=== PATIENT | female | born 1950 | race Caucasian/White ===

== ENCOUNTER → 2017-01-15 | Outpatient (CLI) | payer MEDICARE, OTHER ==
--- NOTE | 2017-01-15 14:10 | MR ---
EXAMINATION TYPE: MR lumbar spine wo con DATE OF EXAM: 01/15/2017 12:47 PM COMPARISON: August 05, 2010 HISTORY: si radiculopathy, left foot numbness Multiplanar, MultiSpin echo imaging of the lumbar spine was performed. L1-L2: There is mild decreased signal and loss of height compatible with a mild disc desiccation. No herniation, protrusion or disc bulging. No canal stenosis is present. Foramina are patent bilateral ly. L2-L3: There is mild decreased signal and loss of height compatible with a mild disc desiccation. No herniation, protrusion or disc bulging. No canal stenosis is present. Foramina are patent bilateral ly. L3-L4: There is mild decreased signal and loss of height compatible with a mild disc desiccation. No herniation, protrusion or disc bulging. No canal stenosis is present. Foramina are patent bilateral ly. L4-L5: There is mild decreased signal and loss of height compatible with a mild disc desiccation. No herniation, protrusion or disc bulging. No canal stenosis is present. Foramina are patent bilateral ly. L5-S1: Severe disc desiccation. Again noted is a grade 1 anterolisthesis L5 on S1 measuring 7.3 mm wi th mild interval progression. There is severe facet joint arthropathy. Mild posterior disc bulging is again noted with effacement of the ventral thecal sac. No evidence for lateral recess stenosis or ce ntral stenosis. No alison disc herniation. Bilateral foraminal encroachment. Lumbar segments are intact. No paraspinal masses are identified. Conus medullaris has a normal appe arance. IMPRESSION: 1. Multilevel degenerative disc disease greatest at L5-S1 where there is a mildly progressive grade 1 anterolisthesis.
== END | disposition home or self-care (01) ==
LOC: RADMRIMAIN 11:59
PROVIDERS: ATTEND Psychiatry & Neurology Neurology
DX: M43.17 Spondylolisthesis, lumbosacral region (principal); M51.17 Intervertebral disc disorders with radiculopathy, lumbosacral region
CPT/HCPCS: 72148

== ENCOUNTER 2018-08-26 09:10 | Day surgery (SDC) | payer MEDICARE, OTHER ==
[2018-08-21 10:16] VITALS: BMI 33.6
[~2018-08-26 09:10] MED LIST: ALPRAZolam 0.25 MG TAB PO PRN; ALPRAZolam 0.5 MG TAB PO PRN; ASPIRIN 325 MG TAB PO STA; ATORVASTATIN 80 MG TAB PO STA; NITROGLYCERIN SL TABS 0.4 MG TAB SUBLINGUAL PRN; SODIUM CHLORIDE 0.9% 1,000 ML in EMPTY BAG 1 BAG IV ONE
[2018-08-26] MEDS ORDERED: LIDOCAINE 1% INJ 10MG/ML (20 ML MDV) ONE (10:06)
[2018-08-26] MEDS ORDERED: VERAPAMIL 2.5 MG/ML 2 ML AMP ONE (10:06)
[2018-08-26] MEDS ORDERED: HEPARIN SODIUM 1,000 UN/ML (10ML VL) ONE (10:06)
[2018-08-26] MEDS ORDERED: MIDAZOLAM (PF) 2 MG/2 ML VIAL IVP ONE (10:29)
[2018-08-26] MEDS ORDERED: LIDOCAINE 1% INJ 10MG/ML (20 ML MDV) SQ ONE (10:32)
[2018-08-26] MEDS: VERAPAMIL SYRINGE (5 MG/10 ML) INTRAARTER ONE ×2 (10:33→10:59)
[2018-08-26] MEDS ORDERED: HEPARIN SODIUM 1,000 UN/ML (10ML VL) IV ONE (10:34)
[2018-08-26] MEDS ORDERED: TICAGRELOR 90 MG TAB ONE (10:44)
[2018-08-26] MEDS ORDERED: TICAGRELOR 90 MG TAB PO ONE (10:45)
[2018-08-26] MEDS ORDERED: NITROGLYCERIN 1000MCG/10ML SYRINGE INTRACORON ONE (10:57)
[2018-08-26] MEDS ORDERED: IOPAMIDOL-370 100ML BTL INJ ONE (10:58)
[2018-08-26] MEDS ORDERED: IOPAMIDOL-370 50ML BTL INJ ONE (10:59)
[2018-08-26] MEDS ORDERED: LIDOCAINE 5% PATCH TOPICAL PRN (11:13)
[2018-08-26] MEDS ORDERED: CYCLOBENZAPRINE 10 MG TAB PO PRN (11:13)
[2018-08-26] MEDS ORDERED: MAG HYDROX/AL HYDROX/SIMETH 30 ML CUP PO PRN (11:14)
[2018-08-26] MEDS ORDERED: ATROPINE SULFATE 0.1 MG/ML 10ML SYRINGE IV PRN (11:14)
[2018-08-26] MEDS ORDERED: RX INFO: IV CONTRAST WAS GIVEN 1 EACH MISC MISCELLANE PRN (11:14)
[2018-08-26] MEDS ORDERED: ZOLPIDEM 5 MG TAB PO PRN (11:14)
[2018-08-26] MEDS ORDERED: NITROGLYCERIN SL TABS 0.4 MG TAB SUBLINGUAL PRN (11:14)
[2018-08-26] MEDS ORDERED: SODIUM CHLORIDE 0.9% 1,000 ML IV SCH (11:15)
--- NOTE | 2018-08-26 13:08 | CC ---
CARDIAC CATHETERIZATION REPORT DATE OF SERVICE: 08/26/2018 PERFORMING PHYSICIAN: Dillon Vizcaino MD, Yacht Rigger. PROCEDURE PERFORMED: 1. Selective right and left coronary angiogram. 2. Left heart catheterization. 3. Successful stenting of the proximal left anterior descending artery using 3.5 x 12 mm Xience drug-eluting stent with an excellent angiographic results. INDICATION: This is a pleasant 68-year-old female patient who was experiencing chest discomfort concerning for angina. Because of that, heart catheterization was advised. APPROACH: Right radial artery. COMPLICATION: None. LEVEL OF SEDATION: Moderate with sedation length of 30 minutes. PROCEDURE DESCRIPTION: After obtaining an informed consent, the patient was brought to the cardiac laborer brooder farm. The right radial artery was cannulated using micropuncture technique, the micropuncture wire passed easily, then I placed a 6-Slovak sheath 11 cm in the right radial artery. I gave the patient after that 2 mg of verapamil IA and 10,000 units of heparin IV. I did selective right and left coronary angiogram using JR4 and JL3.5 catheters. The left heart catheterization was performed using the JR4 catheter which flipped into the LV then I did pullback across the aortic valve. After that. I did PCI of the LAD. Please see a separate paragraph for that. SELECTIVE CORONARY ANGIOGRAM: 1. The right coronary artery is a large caliber vessel. It is a dominant vessel. The RCA is heavily calcified. The proximal RCA has a lesion, appeared to be in the range of 70%. The mid RCA is hazy with mild disease only. The RCA distally appeared to have another lesion in the range of 60%. Then the RCA bifurcates into PDA and PLV branches, both appeared both appear to have mild to moderate diffuse disease. 2. The left main is angiographically normal. It bifurcates into left circumflex and left anterior descending artery. 3. The left circumflex is a moderate caliber vessel. It is a nondominant vessel and appeared to be angiographically normal. 4. The LAD, the proximal LAD between the bifurcation of the first and second diagonal branch has a lesion appeared to be in the range of 80%. The mid and distal LAD appeared to be angiographically normal. The first and second diagonal branches appeared to be normal. 5. HEMODYNAMICS, the left ventricular pressure was 10 mmHg without significant gradient across the aortic valve. 6. PCI of the LAD, anticoagulation was initiated using heparin with continuous ACT monitoring throughout the procedure. After that I gave the patient 180 mg of Brilinta. After that, I did engage the left main using JL3.5 guide. The run-through wire was used to wire the LAD. I did after that balloon angioplasty using 3.5 x 12 mm balloon before I deployed a 3.5 x 12 mm Xience drug-eluting stent where the stent was positioned under fluoroscopy guidance and deployed under its nominal pressure. The following angiogram showed good results and the procedure was completed without any complication. CONCLUSION: 1. Calcified right coronary system with disease involving the proximal right coronary artery appears to be in the range of 70%. 2. Severe disease involving the proximal left anterior descending artery. 3. Successful stenting of the proximal left anterior descending artery using 3.5 x 12 mm Xience LISA with good angiographic results. POSTPROCEDURE MANAGEMENT: 1. Medical treatment. 2. Follow up with the patient. MMODL / IJN: [id number] /
[2018-08-26] MEDS: ETODOLAC 200 MG CAPSULE PO SCH (19:57)
[2018-08-26] MEDS: TICAGRELOR 90 MG TAB PO SCH (19:57)
[2018-08-26] MEDS ORDERED: MONTELUKAST 10 MG TAB PO SCH (21:00)
[2018-08-27 07:42] LABS: Anion Gap 9 mmol/L; Blood Urea Nitrogen 16 mg/dL (7-17); Calcium 9.6 mg/dL (8.4-10.2); Carbon Dioxide 23 mmol/L (22-30); Chloride 109 mmol/L (98-107); Glucose 101 mg/dL (74-99); Sodium 141 mmol/L (137-145)
[2018-08-27 07:43] LABS: Potassium 4.6 mmol/L (3.5-5.1)
[2018-08-27] MEDS: TICAGRELOR 90 MG TAB PO SCH (07:53)
[2018-08-27] MEDS: ETODOLAC 200 MG CAPSULE PO SCH (07:53)
--- NOTE | 2018-08-27 08:02 | DS ---
DISCHARGE SUMMARY ADMISSION DATE: August 26, 2018 DISCHARGE DATE: August 27, 2018 BRIEF HISTORY: This is a pleasant 68-year-old female patient who was experiencing symptoms of chest discomfort and underwent heart catheterization which revealed severe disease involving the left anterior descending artery. She underwent successful stenting of the LAD with good angiographic results and without any complication from right radial approach. On follow up with her today, she is asymptomatic. She is going to be discharged home on dual antiplatelet therapy and I will follow up with her in a week in the office. MMODL / IJN: [id number] /
[2018-08-27 08:05] LABS: Basophils # (A) 0.1 k/uL (0-0.2); Basophils % (A) 1 %; Eosinophils # (A) 0.5 k/uL (0-0.7); Eosinophils % (A) 9 %; HCT 48.4 % (34.0-46.0); HGB 16.1 gm/dL (11.4-16.0); Lymphocytes # (A) 1.3 k/uL (1.0-4.8); Lymphocytes % (A) 26 %; MCH 32.2 pg (25.0-35.0); MCHC 33.3 g/dL (31.0-37.0); MCV 96.7 fL (80.0-100.0); Mean Platelet Volume 7.9; Monocytes # (A) 0.3 k/uL (0-1.0); Monocytes % (A) 7 %; Neutrophils # (A) 2.7 k/uL (1.3-7.7); Neutrophils % (A) 54 %; Platelet Count 192 k/uL (150-450); RBC 5.01 m/uL (3.80-5.40); RDW 14.6 % (11.5-15.5); WBC 5.1 k/uL (3.8-10.6)
[2018-08-27 08:07] VITALS: BP 167/85; PULSE 70; RESP 18; TEMP 98.3
[2018-08-27] MEDS ORDERED: ATORVASTATIN 40 MG TAB PO SCH (09:00)
[2018-08-27] MEDS ORDERED: ALLOPURINOL 300 MG TAB PO SCH (09:00)
[2018-08-27] MEDS ORDERED: [UNRECOGNIZED DRUG - OTHER] PO SCH (09:00)
[2018-08-27] MEDS ORDERED: GABAPENTIN 100 MG CAP PO SCH (09:00)
[2018-08-27] MEDS ORDERED: ASPIRIN 81 MG PO SCH (09:00)
[2018-08-27] MEDS ORDERED: amLODIPine 5 MG TAB PO SCH (09:00)
[2018-08-27] MEDS ORDERED: Ubidecarenone [Co Q-10] 100 MG PO SCH (09:00)
[2018-08-27] MEDS ORDERED: MULTIVITAMINS, THERA 1 EACH TAB PO SCH (09:00)
[2018-08-27] MEDS ORDERED: CHOLECALCIFEROL 1,000 UNIT TAB PO SCH (09:00)
[2018-08-27] MEDS ORDERED: ACETAMINOPHEN TAB 500 MG TAB PO SCH (09:00)
[2018-08-27] MEDS ORDERED: HYDROCHLOROTHIAZIDE 25 MG TAB PO SCH (09:00)
== END 2018-08-27 09:30 | disposition home or self-care (01) ==
LOC: CATHCVL 09:10 → 3SCARD 11:11 → CATHCVL 08-27 09:30
PROVIDERS: ATTEND Internal Medicine Interventional Cardiology
DX: I25.110 Atherosclerotic heart disease of native coronary artery with unstable angina pectoris (principal); I25.84 Coronary atherosclerosis due to calcified coronary lesion; I10 Essential (primary) hypertension; E78.5 Hyperlipidemia, unspecified; Z82.49 Family history of ischemic heart disease and other diseases of the circulatory system; I35.0 Nonrheumatic aortic (valve) stenosis; R01.1 Cardiac murmur, unspecified; Z79.1 Long term (current) use of non-steroidal anti-inflammatories (NSAID); Z79.82 Long term (current) use of aspirin; Z79.899 Other long term (current) drug therapy
CPT/HCPCS: 93458; 80048; 85025; C9600; C1887; C1725; C1769 ×2; C1874; C1894; J2001; J1644; Q9967 ×2; J2250

== ENCOUNTER 2018-09-29 06:19 | Day surgery (SDC) | payer MEDICARE, OTHER ==
[2018-09-23 12:29] VITALS: BMI 33.0
[~2018-09-29 06:19] MED LIST changes: -ALPRAZolam 0.5 MG TAB PO PRN; +ASPIRIN 325 MG TAB PO ONE; -ASPIRIN 325 MG TAB PO STA; -ATORVASTATIN 80 MG TAB PO STA; -NITROGLYCERIN SL TABS 0.4 MG TAB SUBLINGUAL PRN
[2018-09-29 07:25] LABS: Basophils # (A) 0.1 k/uL (0-0.2); Basophils % (A) 1 %; Eosinophils # (A) 0.4 k/uL (0-0.7); Eosinophils % (A) 8 %; HCT 41.3 % (34.0-46.0); HGB 13.5 gm/dL (11.4-16.0); Lymphocytes # (A) 1.3 k/uL (1.0-4.8); Lymphocytes % (A) 26 %; MCH 31.4 pg (25.0-35.0); MCHC 32.6 g/dL (31.0-37.0); MCV 96.3 fL (80.0-100.0); Mean Platelet Volume 7.5; Monocytes # (A) 0.4 k/uL (0-1.0); Monocytes % (A) 9 %; Neutrophils # (A) 2.7 k/uL (1.3-7.7); Neutrophils % (A) 53 %; Platelet Count 207 k/uL (150-450); RBC 4.29 m/uL (3.80-5.40)
[2018-09-29] MEDS ORDERED: ASPIRIN 81 MG PO ONE (07:32)
[2018-09-29 07:45] LABS: Anion Gap 5 mmol/L; Blood Urea Nitrogen 15 mg/dL (7-17); Calcium 9.2 mg/dL (8.4-10.2); Carbon Dioxide 29 mmol/L (22-30); Chloride 108 mmol/L (98-107); Glucose 117 mg/dL (74-99); Potassium 4.2 mmol/L (3.5-5.1); Sodium 142 mmol/L (137-145)
[2018-09-29] MEDS ORDERED: LIDOCAINE 1% INJ 10MG/ML (20 ML MDV) ONE (08:09)
[2018-09-29] MEDS ORDERED: MIDAZOLAM (PF) 2 MG/2 ML VIAL IV ONE (08:34)
[2018-09-29] MEDS ORDERED: BIVALIRUDIN BOLUS 250 MG/50 ML IV ONE (08:41)
[2018-09-29] MEDS ORDERED: BIVALIRUDIN 250 MG in SODIUM CHLORIDE 0.9% 50 ML IV ONE (08:42)
[2018-09-29] MEDS ORDERED: ENALAPRILAT 1.25 MG/ML 1 ML VIAL ONE (09:04)
[2018-09-29] MEDS ORDERED: hydrALAZINE HCL 20 MG/ML 1 ML VIAL ONE (09:04)
[2018-09-29] MEDS ORDERED: ENALAPRILAT 1.25 MG/ML 1 ML VIAL IV ONE (09:06)
[2018-09-29] MEDS ORDERED: hydrALAZINE HCL 20 MG/ML 1 ML VIAL IV ONE (09:09)
[2018-09-29] MEDS ORDERED: IOPAMIDOL-370 100ML BTL INJ ONE (09:09)
[2018-09-29] MEDS ORDERED: CYCLOBENZAPRINE 10 MG TAB PO PRN (09:12)
[2018-09-29] MEDS ORDERED: ZOLPIDEM 5 MG TAB PO PRN (09:14)
[2018-09-29] MEDS ORDERED: MAG HYDROX/AL HYDROX/SIMETH 30 ML CUP PO PRN (09:14)
[2018-09-29] MEDS ORDERED: RX INFO: IV CONTRAST WAS GIVEN 1 EACH MISC MISCELLANE PRN (09:14)
[2018-09-29] MEDS ORDERED: ATROPINE SULFATE 0.1 MG/ML 10ML SYRINGE IV PRN (09:14)
[2018-09-29] MEDS ORDERED: NITROGLYCERIN SL TABS 0.4 MG TAB SUBLINGUAL PRN (09:14)
[2018-09-29] MEDS ORDERED: SODIUM CHLORIDE 0.9% 1,000 ML IV SCH (09:15)
--- NOTE | 2018-09-29 09:45 | CC ---
CARDIAC CATHETERIZATION REPORT PERCUTANEOUS CORONARY INTERVENTION: DATE OF SERVICE: 09/29/2017 PERFORMING PHYSICIAN: Dillon Vizcaino MD, Neurological Surgery Teacher. PROCEDURE PERFORMED: 1. Successful stenting of the mid right coronary artery using 4.0 x 15 mm Xience LISA with good angiographic results. 2. Successful stenting of the proximal RCA using 5.0 x 18 mm multilink bare metal stent with an excellent angiographic results. INDICATION: This is a 68-year-old female patient who underwent a heart catheterization recently for chest discomfort and was found to have severe coronary artery disease involving the LAD and RCA where she underwent stenting of the RCA at that point, and she was brought today to undergo stenting of the LAD. At that point, she was brought today to undergo stenting of the RCA. APPROACH: Right common femoral artery. COMPLICATION: None. LEVEL OF SEDATION: Moderate with sedation length of 30 minutes. PROCEDURE DESCRIPTION: After obtaining an informed consent, the patient was brought to the cardiac mill labor supervisor. The right common femoral artery was cannulated using micropuncture technique, the micropuncture wire passed easily, then I placed a 6-Tajik sheath in the right common femoral artery. At that point, anticoagulation was initiated using Angiomax. Subsequently, I did engage the right coronary artery using JR4 guide. A run-through wire was used to wire the right coronary artery. After that, I did PTCA ballooning using 3.5 x 12 mm balloon before I deployed in the mid right coronary artery, I deployed 4.0 x 15 mm Xience drug- eluting stent, which was deployed under 18 atmospheres for 20 seconds and in the proximal right coronary artery, I did deploy 5.0 x 18 mm multilink bare metal stent where the second stent was positioned under fluoroscopy guidance with 2 mm overlap between the 2 stents and the second stent was deployed under 18 atmospheres for 20 seconds. After that, I took a 4.5 mm NC balloon and I post dilated the 2 stents. The final angiogram showed excellent angiographic results and the procedure was completed without any complication. POSTPROCEDURE MANAGEMENT: 1. Dual anti-platelet therapy. 2. Risk factors modifications. 3. Follow up with the patient. MMDORITAL / AIDENN: [id number] /
[2018-09-29] MEDS ORDERED: ACETAMINOPHEN TAB 500 MG TAB PO STA (12:45)
[2018-09-29] MEDS: ACETAMINOPHEN TAB 500 MG TAB PO SCH (12:49)
[2018-09-29] MEDS: CARVEDILOL 3.125 MG TAB PO SCH (17:20)
[2018-09-29] MEDS ORDERED: MONTELUKAST 10 MG TAB PO SCH (21:00)
[2018-09-29] MEDS: ETODOLAC 400 MG TAB PO SCH (22:12)
[2018-09-29] MEDS: TICAGRELOR 90 MG TAB PO SCH (22:12)
[2018-09-29] MEDS: AMOXIC-POT CLAV 875-125MG 1 EACH TAB PO SCH (22:13)
[2018-09-30] MEDS: CARVEDILOL 3.125 MG TAB PO SCH (07:10)
[2018-09-30 08:30] LABS: Basophils # (A) 0.1 k/uL (0-0.2); Basophils % (A) 1 %; Eosinophils # (A) 0.3 k/uL (0-0.7); Eosinophils % (A) 6 %; HCT 41.5 % (34.0-46.0); HGB 13.8 gm/dL (11.4-16.0); Lymphocytes # (A) 1.2 k/uL (1.0-4.8); Lymphocytes % (A) 21 %; MCH 32.1 pg (25.0-35.0); MCHC 33.1 g/dL (31.0-37.0); Mean Platelet Volume 7.9; Monocytes # (A) 0.4 k/uL (0-1.0); Monocytes % (A) 8 %; Neutrophils # (A) 3.4 k/uL (1.3-7.7); Neutrophils % (A) 62 %; Platelet Count 195 k/uL (150-450); RBC 4.28 m/uL (3.80-5.40); RDW 15.3 % (11.5-15.5); WBC 5.5 k/uL (3.8-10.6)
[2018-09-30 08:42] LABS: Anion Gap 9 mmol/L; Blood Urea Nitrogen 13 mg/dL (7-17); Calcium 9.4 mg/dL (8.4-10.2); Carbon Dioxide 24 mmol/L (22-30); Chloride 109 mmol/L (98-107); Glucose 120 mg/dL (74-99); Potassium 4.1 mmol/L (3.5-5.1); Sodium 142 mmol/L (137-145)
[2018-09-30] MEDS ORDERED: ALLOPURINOL 300 MG TAB PO SCH (09:00)
[2018-09-30] MEDS ORDERED: NON-FORMULARY DRUG (Ubidecarenone [Co Q-10] 100 MG) PO SCH (09:00)
[2018-09-30] MEDS ORDERED: amLODIPine 5 MG TAB PO SCH (09:00)
[2018-09-30] MEDS ORDERED: CHOLECALCIFEROL 1,000 UNIT TAB PO SCH (09:00)
[2018-09-30] MEDS ORDERED: MULTIVITAMINS, THERA 1 EACH TAB PO SCH (09:00)
[2018-09-30] MEDS ORDERED: NON-FORMULARY DRUG (Glucosam/Chon-Msm1/C/Mang/Bosw [Glucosamine-Chondroitin Tablet] 1 EACH PO SCH (09:00)
[2018-09-30] MEDS ORDERED: ASPIRIN 81 MG PO SCH (09:00)
[2018-09-30] MEDS ORDERED: LACTOBACILLUS ACIDOPH & BULGAR 1 EACH PACKET PO SCH (09:00)
[2018-09-30] MEDS ORDERED: HYDROCHLOROTHIAZIDE 25 MG TAB PO SCH (09:00)
[2018-09-30] MEDS ORDERED: ATORVASTATIN 40 MG TAB PO SCH (09:00)
[2018-09-30] MEDS: ETODOLAC 400 MG TAB PO SCH (09:25)
[2018-09-30] MEDS: GABAPENTIN 100 MG CAP PO SCH ×2 (09:25→09:26)
[2018-09-30] MEDS: ACETAMINOPHEN TAB 500 MG TAB PO SCH (09:25)
[2018-09-30] MEDS: AMOXIC-POT CLAV 875-125MG 1 EACH TAB PO SCH (09:25)
[2018-09-30] MEDS: TICAGRELOR 90 MG TAB PO SCH (09:26)
--- NOTE | 2018-09-30 09:43 | P.DS ---
Providers Attending physician: iDllon Vizcaino Consults: 09/29/18 09:14 Consult Physician Routine Consulting Provider: [facility] Consult Reason/Comments: Post Interventional patient Do you want consulting provider notified?: Already Contacted Placement Type Exists?: Yes Primary care physician: A[facility] Course: INTERVAL HISTORY: The patient is a 68-year-old female admitted to the hospital by Dr. Nair for elective PCI. She underwent successful stent placement to the mid and proximal RCA with 2 stents. Mid being Xience drug- eluting and the proximal being bare-metal. This was done via the right femoral approach. She is seen and examined up walking around the room in no acute distress. She denies chest pain, shortness of breath, dizziness, nausea, vomiting or palpitations. She also denies any pain, bleeding or swelling at the site of the procedure. Repeat EKG this morning reveals sinus mechanism with right bundle branch block. Laboratory data reviewed, WBC 5.5, hemoglobin 13.8, platelets 195, sodium 142, potassium 4.1, creatinine 0.45. Currently maintained on Brillinta 90 mg twice a day, amlodipine 5 mg daily, aspirin 81 mg daily, atorvastatin 40 mg daily, carvedilol 6.25 mg twice a day, hydrochlorothiazide 25 mg daily, Requip 0.5 mg at bedtime, Singulair 10 mg daily, Neurontin 100 mg daily, Lodine 400 mg twice a day, allopurinol 300 mg daily. PHYSICAL EXAMINATION: Blood pressure 132/67, heart rate D5, respirations 16, temp 97.8F. Patient is 95 % room air. HEART: S1, S2 normal. LUNGS: Clear to auscultation. NECK: Supple. ABDOMEN: Soft. EXTREMITIES: 2+ peripheral pulses. Right femoral access site clean, dry, intact with no evidence of bleeding, hematoma or swelling. Mild ecchymosis noted. ASSESSMENT Coronary artery disease status post successful angioplasty PLAN Hemodynamically stable. Discharge home on current regimen with no change in medications. This has been explained to the patient and her daughter in great detail and questions have been answered appropriately. I have advised her to NOT return to water aerobics until she follows up in the office for evaluation. Follow-up in the office with Dr. Vizcaino in one week. Nurse Practitioner note has been reviewed, I agree with a documented findings and plan of care. Patient was seen and examined. Patient Condition at Discharge: Stable Plan - Discharge Summary Discharge Rx Participant: Yes New Discharge Prescriptions: Continue Aspirin 81 mg PO DAILY Diclofenac Sodium [Voltaren] 75 mg PO BID Atorvastatin [Lipitor] 40 mg PO DAILY amLODIPine [Norvasc] 5 mg PO DAILY Gabapentin [Neurontin] 100 mg PO DAILY Allopurinol [Zyloprim] 300 mg PO DAILY Cyclobenzaprine [Flexeril] 10 mg PO DAILY PRN PRN Reason: Muscle Spasm Glucosam/Wilber-Msm1/C/Liborio/Bosw [Glucosamine-Chondroitin Tablet] 1 each PO DAILY Cholecalciferol (Vitamin D3) [Vitamin D3] 2,000 unit PO DAILY rOPINIRole HCL 0.5 mg PO HS Multivitamins, Thera [Multivitamin (formulary)] 1 tab PO DAILY Acetaminophen [Tylenol Extra Strength] 1,000 mg PO DAILY Ubidecarenone [Co Q-10] 100 mg PO DAILY Montelukast [Singulair] 10 mg PO HS Hydrochlorothiazide [Hydrodiuril] 25 mg PO DAILY Ticagrelor [Brilinta] 90 mg PO BID #180 tab Carvedilol [Coreg] 6.25 mg PO BID L.acidoph,Paracasei, B.lactis [Probiotic] 1 each PO DAILY Amoxic-Pot Clav 875-125Mg [Augmentin 875-125] 1 tab PO BID Discharge Medication List Acetaminophen [Tylenol Extra Strength] 1,000 mg PO DAILY 08/21/18 [History] Allopurinol [Zyloprim] 300 mg PO DAILY 08/21/18 [History] Aspirin 81 mg PO DAILY 08/21/18 [History] Atorvastatin [Lipitor] 40 mg PO DAILY 08/21/18 [History] Cholecalciferol (Vitamin D3) [Vitamin D3] 2,000 unit PO DAILY 08/21/18 [History] Cyclobenzaprine [Flexeril] 10 mg PO DAILY PRN 08/21/18 [History] Diclofenac Sodium [Voltaren] 75 mg PO BID 08/21/18 [History] Gabapentin [Neurontin] 100 mg PO DAILY 08/21/18 [History] Glucosam/Wilber-Msm1/C/Liborio/Bosw [Glucosamine-Chondroitin Tablet] 1 each PO DAILY 08/21/18 [History] Hydrochlorothiazide [Hydrodiuril] 25 mg PO DAILY 08/21/18 [History] Montelukast [Singulair] 10 mg PO HS 08/21/18 [History] Multivitamins, Thera [Multivitamin (formulary)] 1 tab PO DAILY 08/21/18 [History] Ubidecarenone [Co Q-10] 100 mg PO DAILY 08/21/18 [History] amLODIPine [Norvasc] 5 mg PO DAILY 08/21/18 [History] rOPINIRole HCL 0.5 mg PO HS 08/21/18 [History] Ticagrelor [Brilinta] 90 mg PO BID #180 tab 08/27/18 [Rx] Carvedilol [Coreg] 6.25 mg PO BID 09/23/18 [History] L.acidoph,Paracasei, B.lactis [Probiotic] 1 each PO DAILY 09/23/18 [History] Amoxic-Pot Clav 875-125Mg [Augmentin 875-125] 1 tab PO BID 09/29/18 [History] Follow up Appointment(s)/Referral(s): Dillon Vizcaino MD [STAFF PHYSICIAN] - 10/08/18 1:00 pm Patient Instructions/Handouts: Heart Healthy Diet (DC), Coronary Intravascular Stent Placement (DC) Activity/Diet/Wound Care/Special Instructions: Please stop by [facility] before going home to picker machine operator more samples of brilinta. Follow up with Dr. Vizcaino in office in one week, and then ask about brilinta at that appointment. Discharge Disposition: HOME SELF-CARE
[2018-09-30 09:51] VITALS: BP 132/70; PULSE 69; RESP 16; TEMP 98.6
== END 2018-09-30 10:05 | disposition home or self-care (01) ==
LOC: CATHCVL 06:19 → 3SCARD 09:10 → CATHCVL 09-30 10:05
PROVIDERS: ATTEND Internal Medicine Interventional Cardiology
DX: I25.10 Atherosclerotic heart disease of native coronary artery without angina pectoris (principal); Z95.5 Presence of coronary angioplasty implant and graft; I10 Essential (primary) hypertension; E78.5 Hyperlipidemia, unspecified; I45.10 Unspecified right bundle-branch block; I35.0 Nonrheumatic aortic (valve) stenosis; Z79.82 Long term (current) use of aspirin; Z79.899 Other long term (current) drug therapy; Z79.02 Long term (current) use of antithrombotics/antiplatelets; Z82.49 Family history of ischemic heart disease and other diseases of the circulatory system
CPT/HCPCS: 80048 ×2; 85025 ×2; C9600; C1876; C1887; C1725; C1769 ×2; C1874; J0360; J0583; Q9967; J2250

== ENCOUNTER → 2019-10-19 | Outpatient (CLI) | payer MEDICARE, OTHER ==
[2019-10-19 13:23] VITALS: BP 124/82; PULSE 75; RESP 18; TEMP 98.6
--- NOTE | 2019-10-19 14:25 | P.HPOB ---
History of Present Illness H&P Date: 10/19/19 Chief Complaint: The patient is here for her routine gynecologic exam. This is a 69-year-old with an LMP of 1999. The patient is here to establish with this office. She is without gynecologic complaints and denies any postmenopausal bleeding. Review of Systems She believes she has gained about 15 pounds over the past year. She denies respiratory, cardiac and G.I. problems. She denies maltreatment or problems with falling. : she denies any significant problems with urinary leakage. Past Medical History Past Medical History: Coronary Artery Disease (CAD), Chest Pain / Angina, Deep Vein Thrombosis (DVT), GERD/Reflux, Hyperlipidemia, Hypertension, Osteoarthritis (OA) Additional Past Medical History / Comment(s): Type 2 diabetes. HEART MURMUR, GOUT, restless leg syndrome, CHRONIC UTI. SEASONAL ALLERGIES. Neuropathy. 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 History of Any Multi-Drug Resistant Organisms: None Reported Past Surgical History: Cholecystectomy, Heart Catheterization With Stent, Joint Replacement, Tubal Ligation Additional Past Surgical History / Comment(s): LEFT TOTAL X2, LEFT KNEE ARTHROSCOPIC. PTCA W/ STENT stents rca 09/29/18. Colonoscopy 1999(next after 3yr). Past Anesthesia/Blood Transfusion Reactions: Postoperative Nausea & Vomiting (PONV) Date of Last Stent Placement:: 09/29/18 Past Psychological History: No Psychological Hx Reported Smoking Status: Never smoker Past Alcohol Use History: Occasional (2 per month) Past Drug Use History: None Reported Additional Drug Use History / Comment(s): She has used CBD oil for her knee. Additional History: She has been a since 2006 and is retired. - Past Family History Father Family Medical History: Cancer Additional Family Medical History / Comment(s): LUNG CANCER Mother Family Medical History: Cancer, Dementia, Diabetes Mellitus, Deep Vein Thrombosis (DVT) Additional Family Medical History / Comment(s): Bowel cancer. Medications and Allergies Home Medications Medication Instructions Recorded Confirmed Type Acetaminophen [Tylenol Extra 1,000 mg PO DAILY 08/21/18 10/19/19 History Strength] Aspirin 81 mg PO DAILY 08/21/18 10/19/19 History Atorvastatin [Lipitor] 40 mg PO DAILY 08/21/18 10/19/19 History Cholecalciferol (Vitamin D3) 5,000 unit PO DAILY 08/21/18 10/19/19 History [Vitamin D3] Gabapentin [Neurontin] 100 mg PO TID 08/21/18 10/19/19 History Glucosam/Wilber-Msm1/C/Liborio/Bosw 1 each PO DAILY 08/21/18 10/19/19 History [Glucosamine-Chondroitin Tablet] Hydrochlorothiazide [Hydrodiuril] 25 mg PO DAILY 08/21/18 10/19/19 History Montelukast [Singulair] 10 mg PO HS 08/21/18 10/19/19 History Multivitamins, Thera [Multivitamin 1 tab PO DAILY 08/21/18 10/19/19 History (formulary)] Ubidecarenone [Co Q-10] 100 mg PO DAILY 08/21/18 10/19/19 History amLODIPine [Norvasc] 5 mg PO DAILY 08/21/18 10/19/19 History rOPINIRole HCL [Requip] 0.5 mg PO HS 08/21/18 10/19/19 History Carvedilol [Coreg] 6.25 mg PO BID 09/23/18 10/19/19 History L.acidoph,Paracasei, B.lactis 1 each PO DAILY 09/23/18 10/19/19 History [Probiotic] Allery Relief 180 mg PO DAILY 10/19/19 10/19/19 History Cbd Oil 750 mg PO DAILY 10/19/19 10/19/19 History Fluticasone Nasal [place] [Flonase 2 spr EA NOSTRIL DAILY 10/19/19 10/19/19 History Nasal [place]] Levothyroxine Sodium [Synthroid] 25 mcg PO DAILY 10/19/19 10/19/19 History Prasugrel HCl 10 mg PO DAILY 10/19/19 10/19/19 History Tumeric 500 mg PO DAILY 10/19/19 10/19/19 History metFORMIN HCL ER [Glucophage Xr] 500 mg PO PC-SUPPER 10/19/19 10/19/19 History Allergies Allergy/AdvReac Type Severity Reaction Status Date / Time simvastatin AdvReac Unknown Unverified 10/19/19 13:18 Exam Vital Signs Temp Pulse Resp BP Pulse Ox 10/19/19 13:20 98.6 F 75 18 124/82 98 Intake and Output 06/10/19/19 10/19/19 22:59 06:59 14:59 Other: Weight 97.976 kg Height 5 feet 6 inches, weight 216 pounds, BMI 34.9. This is a well-developed well-nourished heavyset white female who is alert and oriented times 3 in no acute distress. HEENT: Within normal limits. NECK: Supple without mass or thyromegaly. CHEST AND LUNGS: Clear to auscultation. HEART: Regular rate and rhythm. BREASTS: Are without mass or discharge. AXILLARY EXAM: Negative for adenopathy. BACK: Negative for CVA tenderness. ABDOMEN: Soft, nontender, without palpable masses. PELVIC EXAM: Normal external genitalia with mild atrophy. Cervix and vagina appear normal with mild atrophy. There is no unusual discharge. There is no evidence of prolapse. The uterus is midposition, atrophic nongravid size,and nontender. There are no palpable adnexal masses or tenderness. RECTAL EXAM: Rectovaginal exam is negative for mass or tenderness and is negative for occult blood. EXTREMITIES: Nontender. IMPRESSION: 1. 69-year-old menopausal female with normal gynecologic exam. 2. Multiple medical problems. PLAN: 1. Pap smear was performed. We will consider discontinuing Pap smear testing after she has gotten 3 normal Pap smears in a row. 2. Self breast awareness was discussed with the patient. 3. Screening mammogram is due in November per the patient. She had a unilateral mammogram because of a hematoma in August 2019 per the patient. She states this was benign. The order slip for bilateral mammogram was given to the patient. She will do this when her annual mammogram is due. 4. Osteoporosis prevention was discussed. I have stressed the importance of adequate calcium, vitamin D and regular exercise. Recommended amounts of calcium and vitamin D were also discussed. I have recommended bone density test since it is been many years since her last one. She would like to do this next year. 5. She did receive her flu shot last fall. 6. She was advised to return in one year for her annual well woman exam.
--- NOTE | 2019-10-27 12:49 | P.PN ---
Progress Note - Text Progress Note Date: 10/27/19 OUTPATIENT FOLLOW-UP NOTE TEST(S)/RESULTS: Pap smear from 10/19/2019 was negative. METHOD OF NOTIFICATION: The patient Was notified by phone. PATIENT COMMENTS: The patient plans on having her mammogram done next month at [facility] DIAGNOSIS: Negative Pap smear DISCUSSION: PLAN: Mammogram to be done next month. The patient was advised to return in 1-2 years for her well woman examination.
== END | disposition home or self-care (01) ==
LOC: WWCWWP 12:54
PROVIDERS: ATTEND Obstetrics & Gynecology
DX: Z53.9 Procedure and treatment not carried out, unspecified reason (principal)

== ENCOUNTER → 2020-02-18 | Outpatient (CLI) | payer MEDICARE, OTHER ==
--- NOTE | 2020-02-18 10:27 | US ---
EXAMINATION TYPE: US kidneys/renal and bladder DATE OF EXAM: 02/18/2020 COMPARISON: MRI Spine CLINICAL HISTORY: N30.20 chronic cystitis without hematuria. EXAM MEASUREMENTS: Right Kidney: 12.1 x 5.4 x 5.1 cm Left Kidney: 11.6 x 6.6 x 6.6 cm Post Void Residual Volume: 58.0 mL Right Kidney: No hydronephrosis or masses seen Left Kidney: No hydronephrosis or masses seen Bladder: wnl Bilateral Jets seen: Yes Normal Post Void Residual: no, as volume is greater than 50.0ml IMPRESSION: 1. Mild post void residual
== END | disposition home or self-care (01) ==
LOC: RADUSWWP 09:45
PROVIDERS: ATTEND Urology
DX: R33.9 Retention of urine, unspecified (principal)
CPT/HCPCS: 76770

== ENCOUNTER 2020-05-08 10:08 | Day surgery (SDC) | payer MEDICARE, OTHER ==
[~2020-05-08 10:08] MED LIST changes: +ALPRAZolam 0.5 MG TAB PO PRN; -ASPIRIN 325 MG TAB PO ONE; +ASPIRIN 325 MG TAB PO STA; +NITROGLYCERIN SL TABS 0.4 MG TAB SUBLINGUAL PRN
[2020-05-08 10:48] LABS: Glucose,Whole Blood 104 mg/dL (75-99)
[2020-05-08] MEDS ORDERED: LIDOCAINE 1% INJ 10MG/ML (20 ML MDV) ONE (11:52)
[2020-05-08] MEDS ORDERED: VERAPAMIL 2.5 MG/ML 2 ML AMP ONE (11:52)
[2020-05-08] MEDS ORDERED: HEPARIN SODIUM 1,000 UN/ML (10ML VL) ONE (11:57)
[2020-05-08] MEDS ORDERED: fentaNYL (PF) 50 MCG/ML 2 ML AMP ONE (11:57)
[2020-05-08] MEDS: MIDAZOLAM 2 MG/2 ML VIAL IVP ONE ×2 (12:05→12:11)
[2020-05-08] MEDS ORDERED: fentaNYL (PF) 50 MCG/ML 2 ML AMP IVP ONE (12:06)
[2020-05-08] MEDS ORDERED: LIDOCAINE 1% INJ 10MG/ML (20 ML MDV) SQ ONE (12:07)
[2020-05-08] MEDS ORDERED: VERAPAMIL SYRINGE (5 MG/10 ML) INTRAARTER ONE (12:09)
[2020-05-08] MEDS ORDERED: HEPARIN SODIUM 1,000 UN/ML (10ML VL) IV ONE (12:11)
[2020-05-08] MEDS ORDERED: CLOPIDOGREL 75 MG TAB ONE (12:33)
[2020-05-08] MEDS ORDERED: IOPAMIDOL-370 125ML BTL INJ ONE (12:37)
[2020-05-08] MEDS ORDERED: CLOPIDOGREL 75 MG TAB PO ONE (12:37)
[2020-05-08] MEDS ORDERED: FLUTICASONE 50MCG/SPRAY NASAL 16GM EA NOSTRIL PRN (12:41)
[2020-05-08] MEDS ORDERED: ATROPINE SULFATE 0.1 MG/ML 10ML SYRINGE IV PRN (12:44)
[2020-05-08] MEDS ORDERED: ZOLPIDEM 5 MG TAB PO PRN (12:44)
[2020-05-08] MEDS ORDERED: MAG HYDROX/AL HYDROX/SIMETH 30 ML CUP PO PRN (12:44)
[2020-05-08] MEDS ORDERED: RX INFO: IV CONTRAST WAS GIVEN 1 EACH MISC MISCELLANE PRN (12:44)
[2020-05-08] MEDS ORDERED: NITROGLYCERIN SL TABS 0.4 MG TAB SUBLINGUAL PRN (12:44)
[2020-05-08] MEDS ORDERED: SODIUM CHLORIDE 0.9% 1,000 ML IV SCH (12:45)
--- NOTE | 2020-05-08 13:34 | CC ---
CARDIAC CATHETERIZATION REPORT CARDIAC CATHETERIZATION AND PERCUTANEOUS CORONARY INTERVENTION: DATE OF SERVICE: May 08, 2020. PERFORMING PHYSICIAN: Dillon Vizcaino MD. PROCEDURE PERFORMED: 1. Selective right and left coronary angiogram. 2. Successful stenting of the mid RCA using a 4.0 x 12 mm Xience drug-eluting stent with excellent angiographic results and reduction of stenosis from 70% to 0%. INDICATION: This is a 70-year-old female patient with coronary artery disease as well as hypertension and dyslipidemia who was experiencing symptoms of chest discomfort concerning for angina. Because of that, a heart catheterization was advised. APPROACH: Right radial artery. COMPLICATION: None. LEVEL OF SEDATION: Moderate with sedation length of 28 minutes. PROCEDURE DESCRIPTION: After obtaining informed consent, the patient was brought to cardiac lab systems analyst. The right radial artery was cannulated using micropuncture technique, the micropuncture wire passed easily then I placed a 6-Lebanese sheath at the right radial artery. After that I gave the patient 2 mg of verapamil IA and 10,000 units of heparin IV. Selective right and left coronary angiogram performed using JR4 and JL3.5 catheters. After that I did intervene on the RCA, please see a separate paragraph for that. SELECTIVE CORONARY ANGIOGRAM: 1. The right coronary artery is a large caliber vessel. It is a dominant vessel. The RCA is calcified. The RCA is stented proximally and the stent is patent. The mid RCA has a lesion appeared to be in the range of 70% to 80%. The RCA distally also has mild disease only and bifurcates into PDA and PLV branches. The PDA branch appeared to be angiographically normal and the PLV branch has a lesion appeared to be in the range of 70% as well. 2. The left main is angiographically normal. It does have mild disease only. It bifurcates into LCX and LAD. 3. The left circumflex is a moderate caliber vessel. It is a nondominant vessel. The LCX appeared to be angiographically normal. In the proximal to midportion, it gives rise into an OM branch which seems to be normal. 4. The LAD is a moderate caliber vessel. The LAD appeared to be angiographically normal. Proximally, it is stented and the stent is patent. In the proximal to midportion, it gives rise into a diagonal branch which seems to be normal. PCI OF THE RCA: Anticoagulation was initiated using Angiomax. Subsequently I did engage the RCA using JR4 guide. I did wire it using a run-through wire. I did balloon angioplasty using 3.5 x 12 mm balloon. Attempting advancing a 4.0 x 12 mm Xience was unsuccessful and I had to place a nataliya wire. With the nataliya wire, I was able to get the stent to the mid RCA where the stent was positioned under fluoroscopy guidance and deployed under 12 atmospheres for 20 seconds with the following angiogram showing excellent angiographic results. CONCLUSION: 1. Patent stent in the proximal right coronary artery. 2. Severe disease involving the mid right coronary artery. 3. Successful stenting of the mid right coronary artery as described above. 4. Severe disease involving the PLV branch of the right coronary artery. 5. Mild disease involving the left main coronary artery. 6. Mild disease involving the left circumflex coronary artery. 7. Patent stent in the proximal left anterior descending artery. POSTPROCEDURE MANAGEMENT: 1. Continue the current medical regimen. 2. Consider medical treatment for the PLV branch unless the patient continues to be symptomatic, then at that point, we will do a PCI of the PLV. HAN / AIDENN: [id number] /
[2020-05-08] MEDS: GABAPENTIN 300 MG CAP PO SCH ×2 (18:54→21:59)
[2020-05-08] MEDS ORDERED: MONTELUKAST 10 MG TAB PO SCH (21:00)
[2020-05-08 21:32] LABS: Glucose,Whole Blood 114 mg/dL (75-99)
[2020-05-08] MEDS: carvediloL 12.5 MG TAB PO SCH (21:59)
[2020-05-09 04:30] VITALS: RESP 16
[2020-05-09 06:19] LABS: Glucose,Whole Blood 117 mg/dL (75-99)
[2020-05-09] MEDS ORDERED: LEVOTHYROXINE 50 MCG TAB PO SCH (06:30)
[2020-05-09] MEDS: GABAPENTIN 300 MG CAP PO SCH (08:16)
[2020-05-09] MEDS: carvediloL 12.5 MG TAB PO SCH (08:16)
[2020-05-09 08:23] LABS: Basophils # (A) 0.1 k/uL (0-0.2); Basophils % (A) 1 %; Eosinophils # (A) 0.3 k/uL (0-0.7); Eosinophils % (A) 4 %; HCT 43.8 % (34.0-46.0); HGB 14.6 gm/dL (11.4-16.0); Lymphocytes # (A) 0.9 k/uL (1.0-4.8); Lymphocytes % (A) 14 %; MCH 32.8 pg (25.0-35.0); MCHC 33.3 g/dL (31.0-37.0); MCV 98.5 fL (80.0-100.0); Mean Platelet Volume 7.5; Monocytes # (A) 0.4 k/uL (0-1.0); Monocytes % (A) 6 %; Neutrophils # (A) 4.7 k/uL (1.3-7.7); Neutrophils % (A) 73 %; Platelet Count 180 k/uL (150-450); RBC 4.44 m/uL (3.80-5.40); RDW 12.9 % (11.5-15.5); WBC 6.5 k/uL (3.8-10.6)
[2020-05-09 08:30] LABS: African American GFR (CKD) >90 (>60 ml/min/1.73 sqM); Anion Gap 7 mmol/L; Blood Urea Nitrogen 13 mg/dL (7-17); Calcium 9.1 mg/dL (8.4-10.2); Carbon Dioxide 25 mmol/L (22-30); Chloride 107 mmol/L (98-107); Glucose 165 mg/dL (74-99); Non-African American GFR(CKD) >90 (>60 ml/min/1.73 sqM); Potassium 4.2 mmol/L (3.5-5.1); Sodium 139 mmol/L (137-145)
[2020-05-09] MEDS ORDERED: hydroCHLOROthiazide 25 MG TAB PO SCH (09:00)
[2020-05-09] MEDS ORDERED: MAGNESIUM OXIDE 400 MG TAB PO SCH (09:00)
[2020-05-09] MEDS ORDERED: NON FORMULARY DRUG (Turmeric Root Extract [Turmeric] 500 MG Capsule) PO SCH (09:00)
[2020-05-09] MEDS ORDERED: ACETAMINOPHEN TAB 500 MG TAB PO SCH (09:00)
[2020-05-09] MEDS ORDERED: LORATADINE 10 MG TAB PO SCH (09:00)
[2020-05-09] MEDS ORDERED: MULTIVITAMINS, THERA 1 EACH TAB PO SCH (09:00)
[2020-05-09] MEDS ORDERED: CHOLECALCIFEROL 1,000 UNIT TAB PO SCH (09:00)
[2020-05-09] MEDS ORDERED: NON FORMULARY DRUG (Ubidecarenone [Co Q-10] 100 MG Capsule) PO SCH (09:00)
[2020-05-09] MEDS ORDERED: ASPIRIN 81 MG PO SCH (09:00)
[2020-05-09] MEDS ORDERED: amLODIPine 5 MG TAB PO SCH (09:00)
[2020-05-09] MEDS ORDERED: NON FORMULARY DRUG (Glucosam/Chon-Msm1/C/Mang/Bosw [Glucosamine-Chondroitin Tablet] 1 EACH PO SCH (09:00)
[2020-05-09] MEDS ORDERED: ATORVASTATIN 40 MG TAB PO SCH (09:00)
[2020-05-09] MEDS ORDERED: TRIMETHOPRIM 100 MG TAB PO SCH (09:00)
[2020-05-09 09:23] VITALS: BP 120/74; PULSE 61; TEMP 98.3
[2020-05-09 09:58] VITALS: BMI 34.4
--- NOTE | 2020-05-09 10:27 | DS ---
DISCHARGE SUMMARY ADMISSION DATE: May 08, 2020. DISCHARGE DATE: May 09, 2020. BRIEF HISTORY: This is a 70-year-old female patient who is known to have coronary artery disease and prior stenting of the RCA who was admitted to the hospital yesterday and underwent successful stenting of the right coronary artery with good angiographic results and without any complication. The patient was seen this morning. The right radial site is soft and nontender with good right radial pulse. The patient is going to be discharged home on dual anti- platelet therapy and I will follow up with her in a week. MMODL / IJN: [id number] /
[2020-05-09] MEDS ORDERED: CLOPIDOGREL 75 MG TAB PO SCH (11:00)
== END 2020-05-09 10:29 | disposition home or self-care (01) ==
LOC: CATHCVL 10:08 → 1SOBS 12:36 → CATHCVL 05-09 10:29
PROVIDERS: ATTEND Internal Medicine Interventional Cardiology
DX: I25.110 Atherosclerotic heart disease of native coronary artery with unstable angina pectoris (principal); I10 Essential (primary) hypertension; E78.5 Hyperlipidemia, unspecified; Z79.899 Other long term (current) drug therapy; Z79.82 Long term (current) use of aspirin; Z95.5 Presence of coronary angioplasty implant and graft; Z82.49 Family history of ischemic heart disease and other diseases of the circulatory system
CPT/HCPCS: 93458; 80048; 85025; C9600; C1887; C1725; C1769 ×2; C1874; C1894; J2250; J2001; J3010; J1644; Q9967

== ENCOUNTER 2020-09-26 07:55 | Day surgery (SDC) | payer MEDICARE, OTHER ==
[~2020-09-26 07:55] MED LIST changes: +ASPIRIN 325 MG TAB PO ONE; -ASPIRIN 325 MG TAB PO STA; +ATORVASTATIN 80 MG TAB PO ONE; +HEPARIN SODIUM,PORCINE 10,000 UNIT in SODIUM CHLORIDE 0.9% 1,000 ML IRRIGATION PRN; +HEPARIN SODIUM,PORCINE 2,500 UNIT in SODIUM CHLORIDE 0.9% 250 ML IRRIGATION PRN
[2020-09-26 08:24] LABS: Glucose,Whole Blood 117 mg/dL (75-99)
[2020-09-26] MEDS ORDERED: LIDOCAINE 1% INJ 10MG/ML (20 ML MDV) ONE (09:19)
[2020-09-26] MEDS ORDERED: VERAPAMIL 2.5 MG/ML 2 ML AMP ONE (09:19)
[2020-09-26] MEDS ORDERED: MIDAZOLAM 2 MG/2 ML VIAL IV ONE (09:40)
[2020-09-26] MEDS ORDERED: LIDOCAINE 1% INJ 10MG/ML (20 ML MDV) SQ ONE (09:42)
[2020-09-26] MEDS ORDERED: VERAPAMIL SYRINGE (5 MG/10 ML) INTRAARTER ONE (09:43)
[2020-09-26] MEDS ORDERED: HEPARIN SODIUM 1,000 UN/ML (10ML VL) ONE (09:44)
[2020-09-26] MEDS ORDERED: HEPARIN SODIUM 1,000 UN/ML (10ML VL) IV ONE (09:47)
[2020-09-26] MEDS ORDERED: NITROGLYCERIN 1000MCG/10ML SYRINGE INTRACORON ONE (10:04)
[2020-09-26] MEDS ORDERED: CLOPIDOGREL 75 MG TAB ONE (10:05)
[2020-09-26] MEDS ORDERED: CLOPIDOGREL 75 MG TAB PO ONE (10:06)
[2020-09-26] MEDS ORDERED: IOPAMIDOL-370 125ML BTL INJ ONE (10:10)
[2020-09-26] MEDS ORDERED: FLUTICASONE 50MCG/SPRAY NASAL 16GM EA NOSTRIL PRN (10:16)
[2020-09-26] MEDS ORDERED: ATROPINE SULFATE 0.1 MG/ML 10ML SYRINGE IV PRN (10:20)
[2020-09-26] MEDS ORDERED: NITROGLYCERIN SL TABS 0.4 MG TAB SUBLINGUAL PRN (10:20)
[2020-09-26] MEDS ORDERED: ZOLPIDEM 5 MG TAB PO PRN (10:20)
[2020-09-26] MEDS ORDERED: RX INFO: IV CONTRAST WAS GIVEN 1 EACH MISC MISCELLANE PRN (10:20)
[2020-09-26] MEDS ORDERED: MAG HYDROX/AL HYDROX/SIMETH 30 ML CUP PO PRN (10:20)
[2020-09-26] MEDS ORDERED: SODIUM CHLORIDE 0.9% 1,000 ML IV SCH (10:30)
--- NOTE | 2020-09-26 11:28 | CC ---
CARDIAC CATHETERIZATION REPORT CARDIAC CATHETERIZATION AND PERCUTANEOUS CORONARY INTERVENTION: DATE OF SERVICE: September 26, 2020 PERFORMING PHYSICIAN: Dillon Vizcaino MD. PROCEDURE PERFORMED: 1. Selective right and left coronary angiogram. 2. Left heart catheterization. 3. Successful stenting of the PLV branch of the right coronary artery using 3.25 x 12 mm Xience drug-eluting stent with an excellent angiographic results and reduction of stenosis from 80% to 0%. INDICATION: This is a pleasant 70-year-old female patient with coronary artery disease and prior stenting of the RCA and LAD who is known to have severe lesion involving the PLV branch of the RCA, was treated medically, was seen in the office recently complaining of chest discomfort with exertion concerning for angina. Because of that, a heart catheterization was advised. APPROACH: Right radial artery. COMPLICATION: None. LEVEL OF SEDATION: Moderate with sedation length of 31 minutes. PROCEDURE DESCRIPTION: After obtaining an informed consent, the patient was brought to the cardiac laborer wrecking and salvaging. The right radial artery was cannulated using micropuncture technique, the micropuncture wire passed easily then I placed a 6-[place]ian sheath at the right radial artery. After that, I gave the patient 2 mg of verapamil IA and 10,000 units of heparin IV. After that I did intervene on the RCA, please see a separate paragraph for that. After that I did left coronary angiogram using JL3.5 catheter. The heart catheterization was performed using the catheter, which crossed the aortic valve then it pulled back across the valve. The procedure was completed without any complication. SELECTIVE CORONARY ANGIOGRAM: 1. The RCA is a large caliber vessel and it is a dominant vessel. The RCA proximally is stented and the stent is patent. The RCA in the proximal portion appeared to be the study. The RCA proximally appeared to be stented and the stent is patent. The mid RCA appeared to have mild disease only. The RCA distally bifurcates into PDA and PLV branches. The PLV branch is a large caliber vessel, about 3 mm in diameter and appeared to have a tight lesion in the range of 70% to 80%.. 2. The left main is angiographically normal. It bifurcates into LCX and LAD. 3. The LCX is a moderate caliber vessel, nondominant vessel. The LCX is angiographically normal. It gives rise into obtuse marginal branch which appeared to be angiographically normal. 4. The LAD: The LAD proximally is stented and the stent is patent. The LAD in the mid and distal portion appeared to be angiographically normal. The LAD proximally gives rise into a large diagonal branch, which seems to be angiographically normal. HEMODYNAMICS: The LVEDP was about 12 mmHg without significant gradient across the aortic valve. PCI OF THE RCA: Anticoagulation was achieved using heparin with continuous ACT monitoring throughout the procedure. After that, I did engage the RCA using right guide. I did wire the RCA using 2 wires. The first wire was a Whisper wire and the second wire was a run-through wire. After that I did balloon angioplasty using 2.5 x 12 mm balloon before I deployed 3.25 x 12 mm Xience drug-eluting stent where the stent was positioned under fluoroscopy guidance and deployed under 20 atmospheres for 20 seconds. The following angiogram showed excellent angiographic results and the procedure was completed without any complication. CONCLUSION: 1. Patent stents in the left anterior descending artery. 2. Patent stent in the proximal RCA. Severe disease involving the PLV branch of the RCA. 3. Successful stenting of the PLV branch of the RCA using 3.25 x 12 mm Xience drug- eluting stent with an excellent angiographic result and reduction of stenosis from 70% to 0%. POSTPROCEDURE MANAGEMENT: 1. Dual anti-platelet therapy to be continuous. 2. Aggressive cholesterol control. 3. Risk factor modifications. 4. Follow up with the patient. MMODL / IJN: [id number] /
[2020-09-26 15:12] LABS: Glucose,Whole Blood 136 mg/dL (75-99)
[2020-09-26] MEDS: carvediloL 12.5 MG TAB PO SCH (17:36)
[2020-09-26] MEDS: GABAPENTIN 300 MG CAP PO SCH ×2 (17:38→20:34)
[2020-09-26] MEDS ORDERED: MONTELUKAST 10 MG TAB PO SCH (21:00)
[2020-09-27 03:51] VITALS: TEMP 97.6
[2020-09-27] MEDS: carvediloL 12.5 MG TAB PO SCH (06:22)
[2020-09-27] MEDS ORDERED: LEVOTHYROXINE 25 MCG TAB PO SCH (06:30)
[2020-09-27 07:34] LABS: African American GFR (CKD) >90 (>60 ml/min/1.73 sqM); Non-African American GFR(CKD) 89 (>60 ml/min/1.73 sqM)
[2020-09-27] MEDS: GABAPENTIN 300 MG CAP PO SCH (08:40)
[2020-09-27] MEDS ORDERED: NON FORMULARY DRUG (Turmeric Root Extract [Turmeric] 500 MG Capsule) PO SCH (09:00)
[2020-09-27] MEDS ORDERED: NON FORMULARY DRUG (Ubidecarenone [Co Q-10] 100 MG Capsule) PO SCH (09:00)
[2020-09-27] MEDS ORDERED: hydroCHLOROthiazide 25 MG TAB PO SCH (09:00)
[2020-09-27] MEDS ORDERED: LORATADINE 10 MG TAB PO SCH (09:00)
[2020-09-27] MEDS ORDERED: CLOPIDOGREL 75 MG TAB PO SCH (09:00)
[2020-09-27] MEDS ORDERED: ATORVASTATIN 40 MG TAB PO SCH (09:00)
[2020-09-27] MEDS ORDERED: amLODIPine 5 MG TAB PO SCH (09:00)
[2020-09-27] MEDS ORDERED: ASPIRIN 81 MG PO SCH (09:00)
[2020-09-27] MEDS ORDERED: CHOLECALCIFEROL 25 MCG (1000 IU) TABLET PO SCH (09:00)
[2020-09-27] MEDS ORDERED: TRIMETHOPRIM 100 MG TAB PO SCH (09:00)
[2020-09-27] MEDS ORDERED: MULTIVITAMINS, THERA 1 EACH TAB PO SCH (09:00)
[2020-09-27] MEDS ORDERED: MAGNESIUM OXIDE 400 MG TAB PO SCH (09:00)
[2020-09-27] MEDS ORDERED: NON FORMULARY DRUG (Glucosam/Chon-Msm1/C/Mang/Bosw [Glucosamine-Chondroitin Tablet] 1 EACH PO SCH (09:00)
[2020-09-27] MEDS ORDERED: ACETAMINOPHEN TAB 500 MG TAB PO SCH (09:00)
[2020-09-27 10:15] VITALS: BP 118/65; PULSE 62; RESP 16
--- NOTE | 2020-09-27 10:48 | P.DS ---
Providers Date of admission: 70-year-old female who underwent cardiac catheterization with Dr. Vizcaino on 09/26/2020 with stenting of the PVL branch of the right coronary artery. Patient had patent stents in the left anterior descending artery and patent stent in the proximal RCA. Patient examined this morning at the bedside. Patient denies chest pain or pressure. She denies shortness of breath. Right radial Site with pulse present. Vital signs stable. She is to continue on dual anti platelet therapy. Patient was deemed stable for discharge home today. She is to follow up outpatient with Dr. Vizcaino. Discharge Diagnosis Coronary artery disease with PCI to PLV branch to RCA, patent stents in proximal RCA and LAD Nurse practitioner note has been reviewed by physician. Signing provider agrees with the documented findings, assessment, and plan of care. Attending physician: Dillon Vizcaino Consults: 09/26/20 10:20 Consult Physician Routine Consulting Provider: [facility] Consult Reason/Comments: Post Interventional patient Do you want consulting provider notified?: Already Contacted Primary care physician: Aryan Hernandez Plan - Discharge Summary Discharge Rx Participant: Yes New Discharge Prescriptions: Continue Aspirin 81 mg PO DAILY amLODIPine [Norvasc] 5 mg PO DAILY Glucosam/Wilber-Msm1/C/Liborio/Bosw [Glucosamine-Chondroitin Tablet] 1 each PO DAILY rOPINIRole HCL [Requip] 0.5 mg PO HS Multivitamins, Thera [Multivitamin (formulary)] 1 tab PO DAILY Ubidecarenone [Co Q-10] 200 mg PO DAILY Montelukast [Singulair] 10 mg PO HS hydroCHLOROthiazide [Hydrodiuril] 25 mg PO DAILY metFORMIN HCL ER [Glucophage Xr] 500 mg PO HS Fluticasone Nasal [place] [Flonase Nasal [place]] 2 spr EA NOSTRIL DAILY PRN PRN Reason: allergies Carvedilol [Coreg] 12.5 mg PO BID Cholecalciferol [Vitamin D3 (25 Mcg = 1000 Iu)] 2,000 unit PO DAILY Gabapentin [Neurontin] 300 mg PO TID Levothyroxine Sodium [Synthroid] 25 mcg PO DAILY Magnesium Oxide 400 mg PO DAILY Trimethoprim [Trimpex] 100 mg PO DAILY Turmeric Root Extract [Turmeric] 1,000 mg PO QAM Clopidogrel [Plavix] 75 mg PO DAILY #0 tablet Allergy Relief 180 mg PO DAILY Atorvastatin [Lipitor] 40 mg PO DAILY No Action Acetaminophen [Tylenol Extra Strength] 1,000 mg PO DAILY Discharge Medication List Acetaminophen [Tylenol Extra Strength] 1,000 mg PO DAILY 08/21/18 [History] Aspirin 81 mg PO DAILY 08/21/18 [History] Glucosam/Wilber-Msm1/C/Liborio/Bosw [Glucosamine-Chondroitin Tablet] 1 each PO DAILY 08/21/18 [History] Montelukast [Singulair] 10 mg PO HS 08/21/18 [History] Multivitamins, Thera [Multivitamin (formulary)] 1 tab PO DAILY 08/21/18 [Hi story] Ubidecarenone [Co Q-10] 200 mg PO DAILY 08/21/18 [History] amLODIPine [Norvasc] 5 mg PO DAILY 08/21/18 [History] hydroCHLOROthiazide [Hydrodiuril] 25 mg PO DAILY 08/21/18 [History] rOPINIRole HCL [Requip] 0.5 mg PO HS 08/21/18 [History] Fluticasone Nasal [place] [Flonase Nasal [place]] 2 spr EA NOSTRIL DAILY PRN 10/19/19 [History] metFORMIN HCL ER [Glucophage Xr] 500 mg PO HS 10/19/19 [History] Carvedilol [Coreg] 12.5 mg PO BID 04/26/20 [History] Cholecalciferol [Vitamin D3 (25 Mcg = 1000 Iu)] 2,000 unit PO DAILY 04/26/20 [History] Gabapentin [Neurontin] 300 mg PO TID 04/26/20 [History] Levothyroxine Sodium [Synthroid] 25 mcg PO DAILY 04/26/20 [History] Magnesium Oxide 400 mg PO DAILY 04/26/20 [History] Trimethoprim [Trimpex] 100 mg PO DAILY 04/26/20 [History] Turmeric Root Extract [Turmeric] 1,000 mg PO QAM 04/26/20 [History] Clopidogrel [Plavix] 75 mg PO DAILY #0 tablet 05/09/20 [Rx] Allergy Relief 180 mg PO DAILY 09/21/20 [History] Atorvastatin [Lipitor] 40 mg PO DAILY 09/21/20 [History] Follow up Appointment(s)/Referral(s): Dillon Vizcaino MD [STAFF PHYSICIAN] - 10/04/20 2:00 pm Aryan Hernandez MD [Primary Care Provider] - 1 Week (Please call office to set up appointment) Patient Instructions/Handouts: Heart Catheterization (DC)
[2020-09-27 11:13] VITALS: BMI 33.3
== END 2020-09-27 11:24 | disposition home or self-care (01) ==
LOC: CATHCVL 07:55 → 3SCARD 14:57 → CATHCVL 09-27 11:24
PROVIDERS: ATTEND Internal Medicine Interventional Cardiology
DX: I25.110 Atherosclerotic heart disease of native coronary artery with unstable angina pectoris (principal); I10 Essential (primary) hypertension; E78.00 Pure hypercholesterolemia, unspecified; Z82.49 Family history of ischemic heart disease and other diseases of the circulatory system; Z95.5 Presence of coronary angioplasty implant and graft; E78.5 Hyperlipidemia, unspecified; Z20.822 Contact with and (suspected) exposure to COVID-19; Z79.84 Long term (current) use of oral hypoglycemic drugs; Z79.82 Long term (current) use of aspirin; Z79.890 Hormone replacement therapy; Z79.899 Other long term (current) drug therapy
CPT/HCPCS: 94760; 93458; 82565; 87635; C9600; C1769 ×3; C1887; C1894; C1725; C1874; J2250; J2001; J1644; Q9967

== ENCOUNTER → 2020-12-26 | Outpatient (CLI) | payer MEDICARE, OTHER ==
--- NOTE | 2020-12-26 13:38 | MR ---
EXAMINATION TYPE: MR lumbar spine wo con DATE OF EXAM: 12/26/2020 COMPARISON: 01/15/2017 HISTORY: Low back pain into buttocks TECHNIQUE: T1 and T2 axial and sagittal images of the lumbar spine are submitted. FINDINGS: There is no abnormal signal seen within the visualized spinal cord or paraspinal soft tissu es. Simple appearing renal cyst noted. At T12-L1 there is degenerative disc disease and mild broad-based disc bulging. No canal stenosis. Th ere is facet arthropathy. No foraminal encroachment. At L1-2 there is moderate to severe degenerative disc disease with circumferential disc bulging great er paracentrally and laterally to the left. Mild bilateral foraminal encroachment. Facet arthropathy but no canal stenosis. At L2-3 there is circumferential disc bulging with facet arthropathy and ligamentum flavum hypertroph y. No Canal stenosis. Mild circumferential disc bulging greater laterally to left with mild left fora aung encroachment. At L3-4 there is degenerative disc disease with facet arthropathy. No focal herniation. Mild left lat eral disc bulging with mild left foraminal encroachment. At L4-5 there is degenerative disc disease with facet arthropathy. No focal herniation. Mild left lat eral disc bulging with mild left foraminal encroachment. At L5-S1 there is severe degenerative disc disease with complete loss of disc signal space. Broad-bas ed disc protrusion with grade 1 anterolisthesis and facet arthropathy. Effacement of thecal sac. Find ings similar to prior exam. IMPRESSION: 1. Multilevel degenerative disc disease with severe changes L5-S1. There is a stable grade 1 anteroli sthesis with posterior disc bulging and effacement of thecal sac. Facet arthropathy contributes to bi lateral moderate foraminal encroachment. 2. Multilevel disc bulging as discussed above noted at L3-4 and L4-5 resulting in mild left foraminal encroachment. 3. Disc bulging L1-2 and L2-3 resulting in foraminal encroachment as discussed above.
== END | disposition home or self-care (01) ==
LOC: RADMRIMAIN 12:08
PROVIDERS: ATTEND Psychiatry & Neurology Neurology
DX: M51.26 Other intervertebral disc displacement, lumbar region (principal); M51.37 Other intervertebral disc degeneration, lumbosacral region
CPT/HCPCS: 72148

== ENCOUNTER → 2021-01-09 | Outpatient (CLI) | payer MEDICARE, OTHER ==
[2021-01-09 09:32] VITALS: BP 114/75; PULSE 61; RESP 18; TEMP 98.5
--- NOTE | 2021-01-09 10:26 | P.HPOB ---
History of Present Illness H&P Date: 01/09/21 Chief Complaint: The patient is here for her routine gynecologic exam. This is a 70-year-old with an LMP of 2000. is without gynecologic complaints and denies any postmenopausal bleeding. She has recently noticed some redness under the right breast. She states it is not pruritic. She has been putting some petroleum jelly and. Review of Systems The patient has lost 4 pounds over the last year. She denies respiratory, cardiac, or G.I. problems. Past Medical History Past Medical History: Coronary Artery Disease (CAD), Chest Pain / Angina, Diabetes Mellitus, Deep Vein Thrombosis (DVT), Hyperlipidemia, Hypertension, Osteoarthritis (OA), Thyroid Disorder Additional Past Medical History / Comment(s): HEART MURMUR, "pseudogout", restless leg syndrome, CHRONIC UTI's. SEASONAL ALLERGIES. Neuropathy. 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 History of Any Multi-Drug Resistant Organisms: None Reported Past Surgical History: Cholecystectomy, Heart Catheterization With Stent, Joint Replacement, Orthopedic Surgery, Tubal Ligation Additional Past Surgical History / Comment(s): LEFT KNEE REPLACEMENT X2(staph infection after 1st replacement), LEFT KNEE ARTHROSCOPIC. Multiple cardiac stents on 2 separate occasions. Colonoscopy 2019(next after 4yr). Past Anesthesia/Blood Transfusion Reactions: Postoperative Nausea & Vomiting (PONV) Date of Last Stent Placement:: 05/08/20 Past Psychological History: No Psychological Hx Reported Smoking Status: Never smoker Past Alcohol Use History: Occasional (1 or 2 per month) Past Drug Use History: None Reported Additional Drug Use History / Comment(s): . Additional History: She has been a since 2006 and is not sexually active. She is retired. - Past Family History Father Family Medical History: Cancer Additional Family Medical History / Comment(s): LUNG CANCER Mother Family Medical History: Cancer, Deep Vein Thrombosis (DVT) Additional Family Medical History / Comment(s): Bowel cancer. Medications and Allergies Home Medications Medication Instructions Recorded Confirmed Type Acetaminophen [Tylenol Extra 1,000 mg PO DAILY 08/21/18 01/09/21 History Strength] Aspirin 81 mg PO DAILY 08/21/18 01/09/21 History Glucosam/Wilber-Msm1/C/Liborio/Bosw 1 each PO DAILY 08/21/18 01/09/21 History [Glucosamine-Chondroitin Tablet] Montelukast [Singulair] 10 mg PO HS 08/21/18 01/09/21 History Multivitamins, Thera [Multivitamin 1 tab PO DAILY 08/21/18 01/09/21 History (formulary)] Ubidecarenone [Co Q-10] 200 mg PO DAILY 08/21/18 01/09/21 History amLODIPine [Norvasc] 5 mg PO DAILY 08/21/18 01/09/21 History hydroCHLOROthiazide [Hydrodiuril] 25 mg PO DAILY 08/21/18 01/09/21 History rOPINIRole HCL [Requip] 0.5 mg PO HS 08/21/18 01/09/21 History Fluticasone Nasal [place] [Flonase 2 spr EA NOSTRIL DAILY PRN 10/19/19 01/09/21 History Nasal [place]] metFORMIN HCL ER [Glucophage XR] 500 mg PO HS 10/19/19 01/09/21 History Carvedilol [Coreg] 12.5 mg PO BID 04/26/20 01/09/21 History Cholecalciferol [Vitamin D3 (25 2,000 unit PO DAILY 04/26/20 01/09/21 History Mcg = 1000 Iu)] Gabapentin [Neurontin] 300 mg PO TID 04/26/20 01/09/21 History Levothyroxine Sodium [Synthroid] 25 mcg PO DAILY 04/26/20 01/09/21 History Magnesium Oxide 400 mg PO DAILY 04/26/20 01/09/21 History Clopidogrel [Plavix] 75 mg PO DAILY #0 tablet 05/09/20 01/09/21 Rx Allergy Relief 180 mg PO DAILY 09/21/20 01/09/21 History Atorvastatin [Lipitor] 40 mg PO DAILY 09/21/20 01/09/21 History Methenamine Hippurate 1 gm PO DAILY 01/09/21 01/09/21 History Allergies Allergy/AdvReac Type Severity Reaction Status Date / Time No Known Allergies Allergy Verified 01/09/21 09:20 Exam Vital Signs Temp Pulse Resp BP Pulse Ox 01/09/21 09:26 98.5 F 61 18 114/75 96 Intake and Output 01/08/21 01/09/21 01/09/21 22:59 06:59 14:59 Other: Weight 96.162 kg Height 5 feet 6 inches, weight 212 pounds, BMI 34.2. This is a well-developed well-nourished heavyset white female who is alert and oriented times 3 in no acute distress. HEENT: Within normal limits. NECK: Supple without mass or thyromegaly. CHEST AND LUNGS: Clear to auscultation. HEART: Regular rate and rhythm. BREASTS: Are without mass or discharge. There is a well demarcated area of erythema under the left breast measuring approximately 9 x 5 cm. The area is slightly moist consistent with her use of petroleum jelly. There is no ulceration or excoriation. AXILLARY EXAM: Negative for adenopathy. BACK: Negative for CVA tenderness. ABDOMEN: Soft, nontender, without palpable masses. PELVIC EXAM: Normal external genitalia with mild atrophy. Cervix and vagina appear normal with mild atrophy. There is no unusual discharge. There is no evidence of prolapse. The uterus is midposition, nongravid size and nontender. There are no palpable adnexal masses or tenderness. Bimanual examination is somewhat limited secondary to her size. RECTAL EXAM: rectovaginal exam is negative for mass or tenderness and is negative for occult blood. EXTREMITIES: Nontender. IMPRESSION: 1. 70-year-old menopausal female with normal gynecologic exam. 2. Erythema intertrigo beneath the right breast. 3. Multiple medical problems. PLAN: 1. Pap smear was deferred since she had a normal one on 10/19/2019. We will continue Pap smears until we have had 3 negative ones within a 10 year period. 2. Self breast awareness was discussed with the patient. We have also discussed symptoms associated with inflammatory breast cancer. 3. Screening mammogram is due. She states she has an appointment at [facility]. The order slip was given to the patient for this. 4. Nystatin powder twice a day to the area beneath the right breast. She will keep the area clean and dry. If she does not know some improvement, she will follow-up with a research program coordinator. 5. Osteoporosis prevention was discussed. I have stressed the importance of adequate calcium, vitamin D and regular exercise. Recommended amounts of calcium and vitamin D were also discussed. Bone density test will be done today. States she has had a bone density test done many years ago and is uncertain of the findings. 6. She did receive the Lyle [employer]yle Covid vaccination. 7. The patient was advised to return in 1-2 years for her well woman examination.
--- NOTE | 2021-01-10 13:21 | P.PN ---
Progress Note - Text Progress Note Date: 01/10/21 OUTPATIENT FOLLOW-UP NOTE TEST(S)/RESULTS: Bone disease test done on 01/09/2021 shows osteopenia. METHOD OF NOTIFICATION: The patient was notified by phone. PATIENT COMMENTS: The patient states she has not had a bone density test done in many years. DIAGNOSIS: Osteopenia DISCUSSION: I have stressed the importance of getting adequate calcium, vitamin D, and regular exercise. PLAN: We will plan on repeating bone density testing in 2 years.
== END ==
LOC: WWCWWP 09:10
PROVIDERS: ATTEND Obstetrics & Gynecology
DX: Z01.419 Encounter for gynecological examination (general) (routine) without abnormal findings (principal); L30.4 Erythema intertrigo; E78.5 Hyperlipidemia, unspecified; I10 Essential (primary) hypertension; I25.10 Atherosclerotic heart disease of native coronary artery without angina pectoris; M19.90 Unspecified osteoarthritis, unspecified site; Z86.718 Personal history of other venous thrombosis and embolism; E11.40 Type 2 diabetes mellitus with diabetic neuropathy, unspecified; Z79.02 Long term (current) use of antithrombotics/antiplatelets; Z79.82 Long term (current) use of aspirin; Z79.84 Long term (current) use of oral hypoglycemic drugs; Z79.899 Other long term (current) drug therapy

== ENCOUNTER → 2021-01-09 | Outpatient (CLI) | payer MEDICARE, OTHER ==
--- NOTE | 2021-01-09 15:54 | BD ---
EXAMINATION TYPE: Axial Bone Density DATE OF EXAM: 01/09/2021 COMPARISON: NONE CLINICAL HISTORY: Height: 66 Weight: 208.1 FRAX RISK QUESTIONS: Alcohol (3 or more units per day): no Family History (Parent hip fracture): no Glucocorticoids (More than 3mos): no (Ex: prednisone, prednisolone, methylprednisolone, dexamethasone, and hydrocortisone). History of Fracture in Adulthood: yes Secondary Osteoporosis: 1. Type 1 Diabetes: no 2. Hyperthyroidism: no 3. Menopause before 45: no 4. Malnutrition: no 5. Chronic liver disease: no Rheumatoid Arthritis: no Current Tobacco Use: no RISK FACTORS HISTORY OF: Surgery to Spine/Hip(right/left)/Wrist (right/left): no Family History of Osteoporosis: yes Active: yes Diet low in dairy products/other sources of calcium: no Postmenopausal woman: age 50 Lost more than 2 inches in height since high school: no MEDICATIONS: Glucophage Thyroid Medications: thyroid How Lon years Additional History: EXAM MEASUREMENTS: Bone mineral densitometry was performed using the [employer] System. Bone mineral density as measured about the Lumbar spine is: ----- L1-L4(G/cm2): 1.135 T Score Values are as follows: ----- L2: -0.2 ----- L3: -0.2 ----- L4: -0.2 ----- L1-L4: -0.4 Bone mineral density : baseline Bone mineral density about the R hip (g/cm2): 0.899 Bone mineral density about the L hip (g/cm2): 0.860 T Score values are as follows: -----R Neck: -1.0 -----L Neck: -1.3 -----R Total: -2.1 -----L Total: -2.1 Bone mineral density : baseline IMPRESSION: Osteopenia (T Score between -2.5 and -1). There is slightly increased risk of fracture and the patient may be considered for treatment. Re-Screen 2-5 years. NOTE: T-SCORE=SD OF THE YOUNG ADULT MEAN.
== END | disposition home or self-care (01) ==
LOC: RADBDWWP 09:12
PROVIDERS: ATTEND Obstetrics & Gynecology
DX: M85.89 Other specified disorders of bone density and structure, multiple sites (principal); Z78.0 Asymptomatic menopausal state
CPT/HCPCS: 77080

== ENCOUNTER → 2021-10-12 | Outpatient (CLI) | payer MEDICARE, OTHER ==
[2021-10-12 18:48] LABS: ALT 33 U/L (8-44); AST 28 U/L (13-35); African American GFR (CKD) 95.6 (60.0-200.0); Albumin 4.6 g/dL (3.8-4.9); Albumin/Globulin Ratio 2.08 (1.60-3.17); Alkaline Phosphatase 57 U/L (41-126); BUN/Creat Ratio 21.28 Ratio (12.00-20.00); Blood Urea Nitrogen 15.6 mg/dL (9.0-27.0); Calcium 9.8 mg/dL (8.7-10.3); Carbon Dioxide 27.7 mmol/L (20.0-27.5); Chloride 103 mmol/L (96-109); Chol/HDL Ratio 2.64 Ratio; Globulin 2.2 g/dL (1.6-3.3); Glucose 111 mg/dL (70-110); LDL Cholesterol,Calculated 61.9 mg/dL (0.0-131.0); Non-African American GFR(CKD) 82.5 (60.0-200.0); Potassium 4.4 mmol/L (3.5-5.5); Sodium 142 mmol/L (135-145); Total Protein 6.9 g/dL (6.2-8.2)
== END | disposition home or self-care (01) ==
LOC: LABWHC1 10:42
PROVIDERS: ATTEND Internal Medicine Endocrinology, Diabetes & Metabolism
DX: E03.8 Other specified hypothyroidism (principal); R73.03 Prediabetes
CPT/HCPCS: 36415; 80053; 80061; 83036; 84443

== ENCOUNTER → 2021-10-17 | Outpatient (CLI) | payer MEDICARE, OTHER ==
[2021-10-17 09:12] VITALS: BP 110/72; PULSE 63; RESP 17; TEMP 97.9
--- NOTE | 2021-10-17 10:36 | P.HPOB ---
History of Present Illness H&P Date: 10/17/21 Chief Complaint: The patient is here for her routine gynecologic exam. This is a 71-year-old with an LMP of 2000. She has been experiencing frequent urinary tract infections. She states her PCP has treated her 7 times in the past year for urinary tract infections. This has been going on for several years, but she is not sure how many times per year she has been treated in the past. She thinks the urinary tract infections have become more frequent since she was treated with chronic antibiotics for a chronic knee infection in 2014. She is no longer on antibiotics for the knee. She states she typically has urinary frequency and nocturia about 3 times per night when her PCP checks her urine. After she gets treated with an antibiotic such as Augmentin or amoxicillin, she urinates less frequently. She denies dysuria or urinary urgency. She is brought in records from a urine culture done on 07/20/2021 which grew E. coli and was sensitive to and the silicon and Augmentin. It was resistant to nitrofurantoin, but sensitive to all other antibiotics on the sensitivity list. She and her PCP are wondering if there are any gynecologic causes for her frequent UTIs. She is otherwise without complaints and denies any postmenopausal bleeding. Review of Systems The patient has lost 4 pounds over the last year. She denies respiratory, cardiac, or G.I. problems. : See HPI. Past Medical History Past Medical History: Coronary Artery Disease (CAD), Chest Pain / Angina, Diabetes Mellitus, Deep Vein Thrombosis (DVT), Hyperlipidemia, Hypertension, Osteoarthritis (OA), Thyroid Disorder Additional Past Medical History / Comment(s): HEART MURMUR, "pseudogout", restless leg syndrome, CHRONIC UTI's. SEASONAL ALLERGIES. Neuropathy. 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 History of Any Multi-Drug Resistant Organisms: None Reported Past Surgical History: Cholecystectomy, Heart Catheterization With Stent, Joint Replacement, Orthopedic Surgery, Tubal Ligation Additional Past Surgical History / Comment(s): LEFT KNEE REPLACEMENT X2(staph infection after 1st replacement), LEFT KNEE ARTHROSCOPIC. 4 cardiac stents. Colonoscopy 2019(next after 4yr) Past Anesthesia/Blood Transfusion Reactions: Postoperative Nausea & Vomiting (PONV) Date of Last Stent Placement:: 05/08/20 Past Psychological History: No Psychological Hx Reported Smoking Status: Never smoker Past Alcohol Use History: Occasional (2 per month) Past Drug Use History: None Reported Additional Drug Use History / Comment(s): . Additional History: She has been a since 2006 and is not sexually active. She is retired. - Past Family History Father Family Medical History: Cancer Additional Family Medical History / Comment(s): LUNG CANCER Mother Family Medical History: Cancer, Deep Vein Thrombosis (DVT) Additional Family Medical History / Comment(s): Bowel cancer. Medications and Allergies Home Medications Medication Instructions Recorded Confirmed Type Acetaminophen [Tylenol Extra 1,000 mg PO DAILY 08/21/18 10/17/21 History Strength] Aspirin 81 mg PO DAILY 08/21/18 10/17/21 History Glucosam/Wilber-Msm1/C/Liborio/Bosw 1 each PO DAILY 08/21/18 10/17/21 History [Glucosamine-Chondroitin Tablet] Montelukast [Singulair] 10 mg PO HS 08/21/18 10/17/21 History Multivitamins, Thera [Multivitamin 1 tab PO DAILY 08/21/18 10/17/21 History (formulary)] Ubidecarenone [Co Q-10] 200 mg PO DAILY 08/21/18 10/17/21 History amLODIPine [Norvasc] 5 mg PO DAILY 08/21/18 10/17/21 History hydroCHLOROthiazide [Hydrodiuril] 25 mg PO DAILY 08/21/18 10/17/21 History rOPINIRole HCL [Requip] 0.5 mg PO HS 08/21/18 10/17/21 History Fluticasone Nasal [place] [Flonase 2 spr EA NOSTRIL DAILY PRN 10/19/19 10/17/21 History Nasal [place]] metFORMIN HCL ER [Glucophage XR] 500 mg PO HS 10/19/19 10/17/21 History Carvedilol [Coreg] 12.5 mg PO BID 04/26/20 10/17/21 History Cholecalciferol [Vitamin D3 (25 2,000 unit PO DAILY 04/26/20 10/17/21 History Mcg = 1000 Iu)] Gabapentin [Neurontin] 300 mg PO TID 04/26/20 10/17/21 History Levothyroxine Sodium [Synthroid] 25 mcg PO DAILY 04/26/20 10/17/21 History Magnesium Oxide 400 mg PO DAILY 04/26/20 10/17/21 History Clopidogrel [Plavix] 75 mg PO DAILY #0 tablet 05/09/20 10/17/21 Rx Allergy Relief 180 mg PO DAILY 09/21/20 10/17/21 History Atorvastatin [Lipitor] 40 mg PO DAILY 09/21/20 10/17/21 History Allergies Allergy/AdvReac Type Severity Reaction Status Date / Time No Known Allergies Allergy Verified 10/17/21 09:03 Exam Vital Signs Temp Pulse Resp BP Pulse Ox 10/17/21 09:07 97.9 F 63 17 110/72 97 Intake and Output 10/16/21 10/17/21 10/17/21 22:59 06:59 14:59 Other: Weight 94.347 kg Height 5 feet 7 inches, weight 208 pounds, BMI 32.6. This is a well-developed well-nourished white female who is alert and oriented times 3 in no acute distress. HEENT: Within normal limits. NECK: Supple without mass or thyromegaly. CHEST AND LUNGS: Clear to auscultation. HEART: Regular rate and rhythm. BREASTS: Are without mass or discharge. AXILLARY EXAM: Negative for adenopathy. BACK: Negative for CVA tenderness. ABDOMEN: Soft, nontender, without palpable masses. PELVIC EXAM: Normal external genitalia with moderate atrophy. Cervix and vagina appear normal with mild to moderate atrophy. There is no unusual discharge. There is no evidence of prolapse. There is no significant cystocele. There is minimal urethral mobility with cough and Valsalva. No urinary leakage was demonstrated. The uterus is midposition, nongravid size and nontender. There are no palpable adnexal masses or tenderness. RECTAL EXAM: Rectovaginal exam is negative for mass or tenderness and is negative for occult blood. EXTREMITIES: Nontender. IMPRESSION: 1. 71-year-old menopausal female with normal gynecologic exam. 2. History of recurrent urinary tract infections with no significant cystocele. 3. History of osteopenia. PLAN: 1. Pap smear was performed. If this is negative this will be repeated in approximately 2-3 years. If they are both negative, Pap smears will be discontinued. 2. Self breast awareness was discussed with the patient. We have also discussed symptoms associated with inflammatory breast cancer. 3. Screening mammogram will be due in January 2022. The order slip was given to the patient for this. She plans on doing this at [facility]. 4. Osteoporosis prevention was discussed. I have stressed the importance of adequate calcium, vitamin D and regular exercise. Recommended amounts of calcium and vitamin D were also discussed. We will plan on repeating bone density testing in approximately 1-1/2 years. Her last one was done on 01/09/2021. 5. We have had a long discussion regarding recurrent urinary tract infections. She states she has not been sexually active for more than 5 years. We have discussed how other can be many factors that can lead to recurrent urinary tract infections. Her "pre"-diabetes may predispose her to the UTIs. The genital atrophy also can predispose to UTIs. We have discussed the importance of wiping from front to back. We have discussed the importance of emptying the bladder as much as possible, not by bearing down, but by relaxing and giving herself more time to urinate. It is also important to not hold urine longer than necessary. We have discussed some different options including trial of estrogen vaginal cream to see if we can increase the thickness of the vaginal mucosa, especially around the urethral opening. We have discussed the option of periodic prophylactic antibiotic use. I have found this most helpful when UTIs are associated with sexual intercourse. Since she is not sexually active we would have to do this at regular intervals such as daily. We have decided to have a trial of estrogen vaginal cream and to see her PCP when she is having UTI symptoms. The electronic prescription for estradiol vaginal cream will be sent to [facility] pharmacy in [place]. She will use 1 g into the vagina and can apply some of this to the area of the urethral opening, 2 times per week. 6. She was advised to return in one year for her annual well woman exam and as needed.
== END ==
LOC: WWCWWP 08:55
PROVIDERS: ATTEND Obstetrics & Gynecology
DX: Z01.419 Encounter for gynecological examination (general) (routine) without abnormal findings (principal); Z78.0 Asymptomatic menopausal state; Z87.440 Personal history of urinary (tract) infections; I25.10 Atherosclerotic heart disease of native coronary artery without angina pectoris; I10 Essential (primary) hypertension; M19.90 Unspecified osteoarthritis, unspecified site; E11.40 Type 2 diabetes mellitus with diabetic neuropathy, unspecified; Z86.718 Personal history of other venous thrombosis and embolism; E78.5 Hyperlipidemia, unspecified; Z87.39 Personal history of other diseases of the musculoskeletal system and connective tissue; Z79.82 Long term (current) use of aspirin; Z79.84 Long term (current) use of oral hypoglycemic drugs

== ENCOUNTER → 2022-02-25 | Outpatient (CLI) | payer MEDICARE, OTHER ==
[2022-02-25 15:03] LABS: Appearance,BF Bloody; Nucleated Cells, Body Fluid 60 /uL; RBC, Body Fluid 27500 /uL
[2022-02-25 15:09] LABS: Mononuclear WBC,Body Fluid 40 %; Polynuclear WBC,Body Fluid 59 %; Total Cells Counted,Body Fluid 100
[2022-02-25 20:02] LABS: Synovial Fld Crystals None Seen (None Seen)
== END | disposition home or self-care (01) ==
LOC: LABWHC1 12:11
PROVIDERS: ATTEND Orthopaedic Surgery
DX: T84.54XA Infection and inflammatory reaction due to internal left knee prosthesis, initial encounter (principal); Z96.652 Presence of left artificial knee joint; Y82.9 Unspecified medical devices associated with adverse incidents
CPT/HCPCS: 36415; 85379; 85652; 86140; 87070; 87075; 87205; 89050; 89060

== ENCOUNTER → 2023-05-14 | Outpatient (CLI) | payer MEDICARE, OTHER ==
[2023-05-14 20:03] LABS: Appearance,BF BLDY; Nucleated Cells, Body Fluid 0 /uL; RBC, Body Fluid 244500 /uL
== END | disposition home or self-care (01) ==
LOC: LABWHC1 10:37
PROVIDERS: ATTEND Orthopaedic Surgery
DX: E11.9 Type 2 diabetes mellitus without complications (principal); Z96.652 Presence of left artificial knee joint; M07.662 Enteropathic arthropathies, left knee; M25.669 Stiffness of unspecified knee, not elsewhere classified; T84.84XD Pain due to internal orthopedic prosthetic devices, implants and grafts, subsequent encounter; Y82.9 Unspecified medical devices associated with adverse incidents
CPT/HCPCS: 36415; 85379; 85652; 86140; 87070; 87075; 87205; 89050

== ENCOUNTER 2024-05-13 11:16 | Emergency (ER) | payer MEDICARE, OTHER ==
[2024-05-13 11:28] VITALS: RESP 18; TEMP 98.4
[2024-05-13 11:29] LABS: Glucose,Whole Blood 121 mg/dL (70-110)
--- NOTE | 2024-05-13 12:03 | ED ---
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 Patient states that she had an appointment and 930 when she was in the examination room she laid back on the examination bed when she began to experience a dizziness described as a room spinning sensation. Patient states that she was sat up by staff and was provided with water and peanut butter crackers and dizziness subsided after 5 to 10 minutes. Currently patient states that she is feeling well with no acute complaints. She denies chest pain, shortness of breath, heart palpitations, headache, weakness. States that she took her morning medications before her dermatology appointment and drank a cup of coffee however did not eat any breakfast. Patient is currently being treated for a sinus infection with Augmentin and states that she is having frontal sinus pressure. - Related Data Home Medications Medication Instructions Recorded Confirmed Acetaminophen [Tylenol Extra 1,000 mg PO DAILY 08/21/18 10/17/21 Strength] Aspirin 81 mg PO DAILY 08/21/18 10/17/21 Glucosam/Wilber-Msm1/C/Liborio/Bosw 1 each PO DAILY 08/21/18 10/17/21 [Glucosamine-Chondroitin Tablet] Montelukast [Singulair] 10 mg PO HS 08/21/18 10/17/21 Multivitamins, Thera [Multivitamin 1 tab PO DAILY 08/21/18 10/17/21 (formulary)] Ubidecarenone [Co Q-10] 200 mg PO DAILY 08/21/18 10/17/21 amLODIPine [Norvasc] 5 mg PO DAILY 08/21/18 10/17/21 hydroCHLOROthiazide [Hydrodiuril] 25 mg PO DAILY 08/21/18 10/17/21 rOPINIRole HCL [Requip] 0.5 mg PO HS 08/21/18 10/17/21 Fluticasone Nasal [place] [Flonase 2 spr EA NOSTRIL DAILY PRN 10/19/19 10/17/21 Nasal [place]] metFORMIN HCL ER [Glucophage XR] 500 mg PO HS 10/19/19 10/17/21 Cholecalciferol [Vitamin D3 (25 2,000 unit PO DAILY 04/26/20 10/17/21 Mcg = 1000 Iu)] Gabapentin [Neurontin] 300 mg PO TID 04/26/20 10/17/21 Levothyroxine Sodium [Synthroid] 25 mcg PO DAILY 04/26/20 10/17/21 Magnesium Oxide 400 mg PO DAILY 04/26/20 10/17/21 carvediloL [Coreg] 12.5 mg PO BID 04/26/20 10/17/21 Allergy Relief 180 mg PO DAILY 09/21/20 10/17/21 Atorvastatin [Lipitor] 40 mg PO DAILY 09/21/20 10/17/21 Previous Rx's Medication Instructions Recorded Clopidogrel [Plavix] 75 mg PO DAILY #0 tablet 05/09/20 Estradiol Cream [Estrace Cream 1 gm VAGINAL DIRECTED #42.5 gm 10/17/21 0.01%] Allergies Allergy/AdvReac Type Severity Reaction Status Date / Time No Known Allergies Allergy Verified 05/13/24 11:24 Review of Systems ROS Statement: Those systems with pertinent positive or pertinent negative responses have been documented in the HPI. ROS Other: All systems not noted in ROS Statement are negative. Past Medical History Past Medical History: Coronary Artery Disease (CAD), Chest Pain / Angina, Diabetes Mellitus, Deep Vein Thrombosis (DVT), Hyperlipidemia, Hypertension, Osteoarthritis (OA), Thyroid Disorder Additional Past Medical History / Comment(s): HEART MURMUR, "pseudogout", restless leg syndrome, CHRONIC UTI's. SEASONAL ALLERGIES. Neuropathy. 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 History of Any Multi-Drug Resistant Organisms: None Reported Past Surgical History: Cholecystectomy, Heart Catheterization With Stent, Joint Replacement, Orthopedic Surgery, Tubal Ligation Additional Past Surgical History / Comment(s): LEFT KNEE REPLACEMENT X2(staph infection after 1st replacement), LEFT KNEE ARTHROSCOPIC. 4 cardiac stents. Colonoscopy 2019(next after 4yr) Past Anesthesia/Blood Transfusion Reactions: Postoperative Nausea & Vomiting (PONV) Date of Last Stent Placement:: 05/08/20 Past Psychological History: No Psychological Hx Reported Smoking Status: Never smoker Past Alcohol Use History: Occasional Past Drug Use History: None Reported - Past Family History Father Family Medical History: Cancer Additional Family Medical History / Comment(s): LUNG CANCER Mother Family Medical History: Cancer, Deep Vein Thrombosis (DVT) Additional Family Medical History / Comment(s): Bowel cancer. General Exam Limitations: no limitations General appearance: alert, in no apparent distress ENT exam: Present: other (frontal maxillary sinus pressure to palpation) Expanded TM/Canal exam: Effusion: Left TM Mouth exam: Present: normal external inspection Neck exam: Present: normal inspection. Absent: tenderness, meningismus, lymphadenopathy Respiratory exam: Present: normal lung sounds bilaterally. Absent: respiratory distress, wheezes, rales, rhonchi, stridor Cardiovascular Exam: Present: regular rate, normal rhythm, normal heart sounds. Absent: systolic murmur, diastolic murmur, rubs, gallop, clicks GI/Abdominal exam: Present: soft, normal bowel sounds. Absent: distended, tenderness, guarding, rebound, rigid Extremities exam: Present: normal inspection, full ROM, normal capillary refill. Absent: tenderness, pedal edema, joint swelling, calf tenderness Neurological exam: Present: alert, oriented X3, CN II-XII intact Course Vital Signs 05/13/24 05/13/24 05/13/24 11:24 11:34 11:38 Temperature 98.4 F 98.4 F Pulse Rate 73 Pulse Rate [ 63 63 Maritime Officer ] Respiratory 18 18 Rate Blood Pressure 162/83 Blood Pressure 159/81 [Right Arm Sitting] Blood Pressure 160/79 [Right Arm Standing] Blood Pressure 168/89 [Right Arm Supine] O2 Sat by Pulse 98 97 Oximetry 05/13/24 13:52 Temperature Pulse Rate 78 Pulse Rate [ Maritime Officer ] Respiratory 18 Rate Blood Pressure 144/56 Blood Pressure [Right Arm Sitting] Blood Pressure [Right Arm Standing] Blood Pressure [Right Arm Supine] O2 Sat by Pulse 98 Oximetry Medical Decision Making - Medical Decision Making Was pt. sent in by a medical professional or institution (, PA, HEALTH DATA ADMINISTRATOR, urgent care, hospital, or half-way...) When possible be specific @ -No Did you speak to anyone other than the patient for history (EMS, parent, family, police, friend...)? What history was obtained from this source @ -No Did you review nursing and triage notes (agree or disagree)? Why? @ -I reviewed and agree with nursing and triage notes Were old charts reviewed (outside hosp., previous admission, EMS record, old EKG, old radiological studies, urgent care reports/EKG's, half-way records)? Report findings @ -No old charts were reviewed Differential Diagnosis (chest pain, altered mental status, abdominal pain women, abdominal pain men, vaginal bleeding, weakness, fever, dyspnea, syncope, headache, dizziness, GI bleed, back pain, seizure, CVA, palpatations, mental health, musculoskeletal)? @ -Differential Dizziness: Benign paroxysmal positional Vertigo, Meniere's disease, otitis media, acoustic neuroma, vertebrobasilar insufficiency, cerebellar stroke, encephalitis, hypovolemic, arrhythmia, coronary artery syndrome, anemia, this is not meant to be an all-inclusive list EKG interpreted by me (3pts min.). @ -EKG completed at 1218 sinus bradycardia with a ventricular to 56, DC interval 218, QRS 143, QTc 441. X-rays interpreted by me (1pt min.). @ -None done CT interpreted by me (1pt min.). @ -None done U/S interpreted by me (1pt. min.). @ -None done What testing was considered but not performed or refused? (CT, X-rays, U/S, labs)? Why? @ -None What meds were considered but not given or refused? Why? @ -None Did you discuss the management of the patient with other professionals (pro fessionals i.e. , PA, HEALTH DATA ADMINISTRATOR, lab, RT, psych nurse, medical social worker, licensed mental health counselor, teacher, transport corps officer, caser)? Give summary @ -No Was smoking cessation discussed for >3mins.? @ -No Was critical care preformed (if so, how long)? @ -No Were there social determinants of health that impacted care today? How? (Homelessness, low income, unemployed, alcoholism, drug addiction, transportation, low edu. Level, literacy, decrease access to med. care, [place] [facility], rehab)? @ -No Was there de-escalation of care discussed even if they declined (Discuss DNR or withdrawal of care, Hospice)? DNR status @ -No What co-morbidities impacted this encounter? (DM, HTN, Smoking, COPD, CAD, Cancer, CVA, ARF, Chemo, Hep., AIDS, mental health diagnosis, sleep apnea, morbid obesity)? @ -None Was patient admitted / discharged? Hospital course, mention meds given and route, prescriptions, significant lab abnormalities, going to OR and other pertinent info. @ -Discharge. 74-year-old female presenting with dizziness with referral from dermatology office. Blood pressure is noted to be mildly elevated on arrival of 162/83. On my discussion the patient she is denying symptoms of dizziness, lightheadedness, heart palpitations, shortness of breath. Patient's orthostatic vitals were positive with a difference in supine and sitting blood pressure. EKG sinus rhythm with a sinus bradycardia. Patient is noted to have sinus pressure over the maxillary sinus on palpation in addition to a effusion of the left ear. Laboratory studies were unremarkable. Patient will be discharged instructed continue Flonase for middle ear effusion instructed to follow-up with primary care provider for further evaluation. Discussed with Dr. Meraz Undiagnosed new problem with uncertain prognosis? @ -No Drug Therapy requiring intensive monitoring for toxicity (Heparin, Nitro, Insulin, Cardizem)? @ -No Were any procedures done? @ -No Diagnosis/symptom? @ -Dizziness Acute, or Chronic, or Acute on Chronic? @ -Acute Uncomplicated (without systemic symptoms) or Complicated (systemic symptoms)? @ -Uncomplicated Side effects of treatment? @ -No Exacerbation, Progression, or Severe Exacerbation? @ -No Poses a threat to life or bodily function? How? (Chest pain, [place], [place], pneumonia, PE, COPD, DKA, ARF, appy, cholecystitis, CVA, Diverticulitis, Homicidal, Suicidal, threat to staff... and all critical care pts) @ -No - Lab Data Result diagrams: 05/13/24 12:13 05/13/24 12:13 Lab Results 05/13/24 05/13/24 05/13/24 Range/Units 11:28 12:13 12:13 WBC 5.1 (3.8-10.6) k/uL RBC 4.49 (3.80-5.40) m/uL Hgb 14.6 (11.4-16.0) gm/dL Hct 43.5 (34.0-46.0) % MCV 96.9 (80.0-100.0) fL MCH 32.4 (25.0-35.0) pg MCHC 33.4 (31.0-37.0) g/dL RDW 13.6 (11.5-15.5) % Plt Count 259 (150-450) k/uL MPV 7.8 Neutrophils % 60 % Lymphocytes % 21 % Monocytes % 7 % Eosinophils % 8 % Basophils % 1 % Neutrophils # 3.1 (1.3-7.7) k/uL Lymphocytes # 1.1 (1.0-4.8) k/uL Monocytes # 0.4 (0-1.0) k/uL Eosinophils # 0.4 (0-0.7) k/uL Basophils # 0.0 (0-0.2) k/uL Sodium 141 (137-145) mmol/L Potassium 4.2 (3.5-5.1) mmol/L Chloride 104 (98-107) mmol/L Carbon Dioxide 29 (22-30) mmol/L Anion Gap 8 mmol/L BUN 15 (7-17) mg/dL Creatinine 0.63 (0.52-1.04) mg/dL Est GFR (CKD-EPI)AfAm >90 (>60 ml/min/1.73 sqM) Est GFR (CKD-EPI)NonAf 89 (>60 ml/min/1.73 sqM) Glucose 115 H (74-99) mg/dL POC Glucose (mg/dL) 121 H (70-110) mg/dL POC Glu Aircraft Structural Repair Mechanic ID [facility] Calcium 10.2 (8.4-10.2) mg/dL Magnesium 2.0 (1.6-2.3) mg/dL Total Bilirubin 0.7 (0.2-1.3) mg/dL AST 31 (14-36) U/L ALT 32 (4-34) U/L Alkaline Phosphatase 52 (38-126) U/L Total Protein 7.3 (6.3-8.2) g/dL Albumin 4.6 (3.5-5.0) g/dL Disposition Clinical Impression: Dizziness Disposition: HOME SELF-CARE Condition: Good Instructions (If sedation given, give patient instructions): Dizziness (ED) Additional Instructions: Please return to the Emergency Department if symptoms worsen or any other concerns. Is patient prescribed a controlled substance at d/c from ED?: No Referrals: Aryan Hernandez MD [Primary Care Provider] - 1-2 days Time of Disposition: 13:07
[2024-05-13 12:21] LABS: Basophils % (A) 1 %; Eosinophils # (A) 0.4 k/uL (0-0.7); Eosinophils % (A) 8 %; HCT 43.5 % (34.0-46.0); HGB 14.6 gm/dL (11.4-16.0); Lymphocytes # (A) 1.1 k/uL (1.0-4.8); Lymphocytes % (A) 21 %; MCH 32.4 pg (25.0-35.0); MCHC 33.4 g/dL (31.0-37.0); MCV 96.9 fL (80.0-100.0); Mean Platelet Volume 7.8; Monocytes # (A) 0.4 k/uL (0-1.0); Monocytes % (A) 7 %; Neutrophils # (A) 3.1 k/uL (1.3-7.7); Neutrophils % (A) 60 %; Platelet Count 259 k/uL (150-450); RBC 4.49 m/uL (3.80-5.40); RDW 13.6 % (11.5-15.5); WBC 5.1 k/uL (3.8-10.6)
[2024-05-13 12:37] LABS: ALT 32 U/L (4-34); AST 31 U/L (14-36); African American GFR (CKD) >90 (>60 ml/min/1.73 sqM); Albumin 4.6 g/dL (3.5-5.0); Alkaline Phosphatase 52 U/L (38-126); Anion Gap 8 mmol/L; Blood Urea Nitrogen 15 mg/dL (7-17); Calcium 10.2 mg/dL (8.4-10.2); Carbon Dioxide 29 mmol/L (22-30); Chloride 104 mmol/L (98-107); Glucose 115 mg/dL (74-99); Non-African American GFR(CKD) 89 (>60 ml/min/1.73 sqM); Potassium 4.2 mmol/L (3.5-5.1); Sodium 141 mmol/L (137-145); Total Bilirubin 0.7 mg/dL (0.2-1.3); Total Protein 7.3 g/dL (6.3-8.2)
[2024-05-13 13:52] VITALS: BP 144/56; PULSE 78
== END 2024-05-13 13:53 | disposition home or self-care (01) ==
LOC: EC 11:16
DX: R42 Dizziness and giddiness (principal); E11.40 Type 2 diabetes mellitus with diabetic neuropathy, unspecified; I10 Essential (primary) hypertension
CPT/HCPCS: 36415; 80053; 83735; 85025; 93005; 99284